=== PATIENT | male | born 1935 | race Caucasian/White ===

== ENCOUNTER → 2017-07-17 | Day surgery (SDC) | payer OTHER ==
[~2017-07-17] MED LIST: CIPRO 500MG TA500 MG PO; FLAG500 PO; LISINOPRIL HCTZ1 TAB PO; LISINOPRIL20 MG PO
--- NOTE | 2017-07-17 15:44 | RADIOLOGY REPORT ---
EXAMINATION: XR PORTABLE CHEST CLINICAL INFORMATION: Status post bronchoscopy COMPARISON: 07/07/2017 TECHNIQUE: Portable frontal view of the chest was obtained. FINDINGS: No convincing evidence for pneumothorax. Continued right-sided opacity which may be fluid and/or atelectasis or infiltrate. Left lung is grossly clear. There is no effusion. IMPRESSION: Status post bronchoscopy. Continued significant right-sided infiltrate with mild increase in the right apex. No convincing evidence for an underlying pneumothorax. Left lung is grossly clear
--- NOTE | 2017-07-17 17:42 | Operative Report ---
Operative/Inv Procedure Report Surgery Date: 07/17/17 Name of Procedure: Navigational bronchoscopy with fine needle aspiration, brushings, forceps biopsy , and bronchoalveolar lavage Pre-Operative Diagnosis: Right lung mass Post-Operative Diagnosis: Same Estimated Blood Loss: scant Surgeon/Supervisor Sulfuric Acid Plant: Ricardo Markham MD Anesthesia: general endotracheal tube Operative/Procedure Note Note: After placement of monitoring lines and induction of general anesthesia a survey bronchoscopy was done. In the right upper lobe there was narrowing of the segmental bronchus but no obstructive lesions were visualized. In the middle lobe there appeared to be an obstructing lesion at the lateral segmental bronchus. The mucosa was somewhat friable in this area. On the left side the endobronchial anatomy was normal. The navigational system was then registered and engaged. Biopsies were first done at the right upper lobe bronchus with transbronchial Contreras needle aspiration. Brushings were then passed into the narrowed segmental bronchus. The second lesion was then identified and was part of the mass obstructing the middle lobe bronchus. Direct forcep biopsies were taken of this area and sent in formalin for permanent evaluation. Bronchoalveolar lavage was done and the fluid sent for cytology. At the end the procedure there was good hemostasis and the mediastinoscopy section proceeded. CC: Alisa LOPEZ,Nasim Enriquez; Shahrzad LOPEZ,Ricardo
--- NOTE | 2017-07-17 17:45 | Operative Report ---
Operative/Inv Procedure Report Surgery Date: 07/17/17 Name of Procedure: Mediastinoscopy Pre-Operative Diagnosis: Mediastinal lymphadenopathy Post-Operative Diagnosis: Metastatic carcinoma Estimated Blood Loss: scant Surgeon/Cager Operator: Indiana Nichols MD,Cm Hammonds Anesthesia: general endotracheal tube Operative/Procedure Note Note: At the end of the navigational procedure the patient's neck and chest were then prepped and draped in a sterile fashion. A small incision was made above the sternal notch and carried down to pre-tracheal fascia. Of note because of the patient's relative inflexible neck entry into the posterior mediastinum was somewhat difficult and this included the fact that his thyroid was fairly low in the neck. The posterior mediastinum was entered with blunt dissection and the mediastinoscope was advanced to the right paratracheal area. There was a significant amount of fibrosis in this area and with dissection there was some venous blood oozing. The lymph nodes that were seen on CT scan were identified and exhibit display representative specimens were taken from one nest in that area. Intraoperative frozen section of one piece disclosed evidence of a poorly differentiated carcinoma. The distinction between small cell and non-small cell was not apparent on frozen section but there was clearly evidence of malignancy. Because of the oozing no further lymph nodes stations were biopsied. Hemostasis was achieved with electrocautery and with Surgicel packing that was left behind in the lymph node bed. The wound was closed in layers deep Vicryl suture pop followed by running Vicryl subcuticular suture. The patient tolerated the procedure well and brought to recovery room in stable condition. CC: Alisa LOPEZ,Nasim Markham MD,Ricardo
== END ==
LOC: STS 01:56
DX: C77.1 Secondary and unspecified malignant neoplasm of intrathoracic lymph nodes (principal); R91.8 Other nonspecific abnormal finding of lung field; I10 Essential (primary) hypertension; Z87.891 Personal history of nicotine dependence
CPT/HCPCS: 71045; 88305; 88331; C9399; J0690; J2250

== ENCOUNTER 2017-08-19 09:37 | Emergency (ER) | payer OTHER ==
[~2017-08-19] VITALS: Ht 167.6 cm; Wt 68.0 kg
--- NOTE | 2017-08-19 09:58 | ED CARDIAC/CP/PALPITATIONS ---
History of Present Illness General Chief Complaint: Chest Pain Stated Complaint: CHEST PAIN Source: patient Exam Limitations: no limitations Allergies Coded Allergies: NO KNOWN ALLERGIES (01/04/15) Triage Note: PT SENT TO ED BY DR TALAVERA FOR RIGHT SIDED CHEST PAIN X 1 WEEK, WORSE YESTERDAY. PT STATES "IT'S THE LUNG". STATES PAIN COMES AND GOES, 11/04 AT THIS TIME. WAS SUPPOSED TO HAVE A CHEMO TREATMENT TODAY, BUT WAS SENT TO ED FOR FURTHER EVAL. EKG DONE. PT ALSO C/O FEELING SOB, RA SATS 92%. PT TAKEN TO ROOM 5 FOR EVAL. Triage Nurses Notes Reviewed? yes Onset: Abrupt Duration: day(s): (2), constant Timing: recent history Quality/Severity: moderate, severe Location: right side Radiation: no radiation HPI: 82-year-old male comes into the emergency room complaints of right-sided chest pain has been going on for the past day. 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 Pain is right- sided. Sharp. Some associated shortness of breath. Denies any fever chills vomiting. He underwent his first treatment of chemotherapy yesterday. He was sent in by his oncologist for a cardiac workup and pulmonary embolism rule out. (Olu Brower) Vital Signs & Intake/Output Vital Signs & Intake/Output Vital Signs Date Time Temp Pulse Resp B/P B/P Pulse O2 O2 Flow FiO2 Mean Ox Delivery Rate 08/19 1810 98.0 98 20 127/71 95 Room Air 08/19 1313 98.3 96 20 134/61 94 08/19 1013 96 Room Air Room Air 08/19 0946 97.0 106 20 121/70 92 Room Air ED Intake and Output 08/20 0000 08/19 1200 Intake Total 0 Output Total Balance 0 Intake, Oral 0 Patient 150 lb Weight Weight Estimated Measurement Method Reconcile Medications Albuterol Sulfate (Ventolin Hfa) 90 MCG HFA.AER.AD 2 PUF INH Q4-6 PRN PRN SOB (Reported) Lisinopril/Hydrochlorothiazide (Lisinopril-Hctz 20-25 MG Tab) 20 MG-25 MG TABLET 1 TAB PO DAILY HEART (Reported) Magnesium Oxide (Magnesium) (Unknown Strength) CAPSULE (Unknown Dose) supplement (Reported) (Margaret LOPEZ,William Levine) Past History Travel History Traveled to [place] past 21 day No Medical History Any Pertinent Medical History? see below for history Cardiovascular: hypertension Cancer(s): lung cancer History of MRSA: Yes Surgical History Surgical History: shoulder surgery Psychosocial History What is your primary language Panamanian Tobacco Use: Quit >30 days ago ETOH Use: denies use Illicit Drug Use: denies illicit drug use Family History Hx Contributory? No (Olu Brower) Review of Systems Review of Systems Constitutional: Reports: no symptoms. EENTM: Reports: no symptoms. Respiratory: Reports: see HPI. Cardiovascular: Reports: see HPI. GI: Reports: no symptoms. Genitourinary: Reports: no symptoms. Musculoskeletal: Reports: no symptoms. Skin: Reports: no symptoms. Neurological/Psychological: Reports: no symptoms. Hematologic/Endocrine: Reports: no symptoms. Immunologic/Allergic: Reports: no symptoms. All Other Systems: Reviewed and Negative (Olu Brower) Physical Exam Physical Exam General Appearance: well developed/nourished, alert, awake Head: atraumatic Eyes: Bilateral: normal appearance. Ears, Nose, Throat: normal ENT inspection, hearing grossly normal Neck: normal inspection Respiratory: no respiratory distress Cardiovascular: regular rate/rhythm, tachycardia Gastrointestinal: soft Back: normal inspection Extremities: normal inspection Neurologic/Psych: awake, alert, oriented x 3 Skin: intact, normal color Core Measures ACS in differential dx? Yes CVA/TIA Diagnosis No Sepsis Present: No Sepsis Focused Exam Completed? No (Olu Brower) Progress Differential Diagnosis: AMI, aortic dissection, musculoskeletal pain, pericarditis, pneumonia, pneumothorax, pulmonary embolism, unstable angina Diagnostic Imaging: Viewed by Me: CT Scan. Discussed w/RAD: CT Scan. Radiology Impression: PATIENT: CURT SHARPE PRESENT AGE: 82 PATIENT ACCOUNT NO: [id number] : 35 LOCATION: [facility] ORDERING PHYSICIAN: Olu MOTT SERVICE DATE: 08/19/17 EXAM TYPE : CAT - CTA CHEST-PULMONARY EMBOLISM EXAMINATION: CT ANGIOGRAM OF THE CHEST WITH AND WITHOUT CONTRAST (CT PULMONARY ANGIOGRAM FOR PE) CLINICAL INFORMATION: 82- year-old male patient with dyspnea. Presumptive diagnosis: Pulmonary embolism. Per chart: Small cell lung cancer. Positive d-dimer. COMPARISON: CT of the chest on 07/07/2017. (No embolism). (Large right lung mass with loculated pleural effusions and mediastinal/hilar adenopathy). Bone scan on 08/13/2017. CT of the abdomen and pelvis on 08/13/2017. (Metastatic disease above and below the diaphragm). TECHNIQUE: Prior to contrast administration, noncontrast localization images were obtained. Subsequently, multidetector volumetric imaging was performed from the thoracic inlet to below the diaphragms following the administration of 95 mL Optiray 320 intravenous contrast. No contrast reaction reported. Sagittal, coronal, and MIP oblique sagittal reformatted images were obtained on the CT workstation, uploaded to PACS, and reviewed. Total exam dose-length product 399 mGy-cm. FINDINGS: Property Site Manager: There is progression of disease involving the entire right hemithorax. The left lung appears clear. QUALITY OF STUDY/CONTRAST BOLUS: Satisfactory PULMONARY ARTERIES: No central or segmental pulmonary emboli. THORACIC AORTA: No aneurysm or dissection. LUNG/ PLEURA: There is gross progression of the malignant loculated pleural effusions and multiple pleural-based tumors. Very large loculated effusion is seen in the anterior right hemithorax. A large spiculated soft tissue mass is seen in the right apex measuring approximately 7 cm. Other pleural-based masses are spread throughout the right hemithorax. There is a loculated pleural effusion inferomedially in the right hemithorax. Cut off of the right middle lobe bronchus is seen. There is further compression affecting the right upper lobe bronchus. The right lower lobe bronchus is patent. There is bronchocentric spread of tumor in the region of the hilum. MEDIASTINUM: Metastatic mediastinal lymphadenopathy is seen in the right hilum and tumor directly infiltrates the mediastinum anterior to the trachea and superior into the right paratracheal region. Tumor also extends into the posterior mediastinum and abuts the descending thoracic aorta. Metastatic lymph nodes are present in the anterior mediastinum. Metastatic nodes are present in the epicardial fat within the middle mediastinum. There is now spread in the retrocrural space. There is no septal bowing. CHEST WALL/AXILLA: Suspicious lymph nodes are present in the right axilla. OSSEOUS STRUCTURES: Given the essentially negative bone scan, there is still suspicion osteolytic foci in the thoracic vertebral bodies which could well represent metastatic disease. There is interbody fusion of T4 and T5. UPPER ABDOMEN: The bulk lymphadenopathy has increased in the upper abdomen in the perivascular spaces in the celiac axis. The adrenal glands are spared. No reflux of contrast into the hepatic veins to suggest elevated right heart pressures. IMPRESSION: 1. No evidence of pulmonary embolism. 2. Gross progression of tumor involving the right hemithorax with pleural studding and loculated pleural effusions. Invasion of the mediastinum. Metastatic nodes in the anterior mediastinum, epicardial fat, and retrocrural region. 3. Gross increase in the bulk adenopathy in the upper abdomen including the perivascular, periaortic, and celiac axis lymph nodes. 4. Question metastatic bone disease in the face of an unimpressive nuclear medicine scan. VTE: negative DICTATED BY: Alex Grubbs MD DATE/TIME DICTATED:08/19/171243 PHARMACOVIGILANCE SAFETY EXPERT: LETICIA DATE/TIME TRANSCRIBED:08/19/171243 CONFIDENTIAL, DO NOT COPY WITHOUT APPROPRIATE AUTHORIZATION. <Electronically signed in Other Vendor System> SIGNED BY: Alex Grubbs MD 08/19/17 1321 Initial ED EKG: normal sinus rhythm, rate (109), RBBB (Olu Brower) Plan of Care: Orders Procedure Date/time Status Heart Healthy Diet 08/19 D Active Intake & Output 08/19 1938 Active Misc Message 08/19 1446 Active ED Holding Orders 08/19 1446 Active Vital Signs 08/19 1446 Active Code Status 08/19 1446 Active TROPONIN LEVEL 08/19 0952 Complete PARTIAL THROMBOPLASTIN TIME 08/19 0952 Complete PROTHROMBIN TIME 08/19 0952 Complete COMPREHENSIVE METABOLIC PANEL 08/19 0952 Complete CBC WITHOUT DIFFERENTIAL 08/19 0952 Complete EKG 08/19 0939 Active Laboratory Tests 08/19/17 1932: Sodium Cancelled, Potassium Cancelled, Chloride Cancelled, Carbon Dioxide Cancelled, Anion Gap Cancelled, BUN Cancelled, Creatinine Cancelled, BUN/ Creatinine Ratio Cancelled, Glucose Cancelled, Calcium Cancelled 08/19/17 1125: PT 13.9 H, INR 1.27 H, APTT 31 08/19/17 1040: Anion Gap 11, Estimated GFR > 60, BUN/Creatinine Ratio 31.3 H, Glucose 107 H, Calcium 8.9, Total Bilirubin 0.6, AST 29, ALT 31, Alkaline Phosphatase 62, Troponin I < 0.01, Total Protein 5.8 L, Albumin 3.0 L, Globulin 2.8, Albumin/ Globulin Ratio 1.1, CBC w Diff NO MAN DIFF REQ, RBC 3.71 L, MCV 82.0, MCH 28.3, MCHC 34.5, RDW 12.8, MPV 6.8 L, Gran % 86.6 H, Lymphocytes % 3.9 L, Monocytes % 9.2, Eosinophils % 0.1, Basophils % 0.2, Absolute Granulocytes 8.3 H, Absolute Lymphocytes 0.4 L, Absolute Monocytes 0.9 H, Absolute Eosinophils 0, Absolute Basophils 0 Comments: 08/19/2017 2:45:24 PM I have discussed this patient's case with Dr. Rockwell. 08/19/2017 3:50:[address] Mason has cold in regards to Curt. Dr. 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 He recommends salt tablets and he will start reevaluate Curt tomorrow morning and repeat his sodium level. Although this is a departure from the planned admission, the family and patient are in agreement. The patient's daughter will stay with him overnight and can bring him back to the hospital in less than 10 minutes if it becomes necessary. She also has the capability of calling 911 for emergency treatment. (Margaret LOPEZ,William Levine) Departure Departure Condition: Stable Referrals: Alisa LOPEZ,Nasim Enriquez (PCP/Family) Additional Instructions: You are refusing repeat blood work at this time. Follow-up with your oncologist tomorrow. Please go over all results of today's visit with your primary care doctor. Contact your primary care doctor to let them know you were here in the emergency room. There may be nonspecific findings which may not be related to your visit today here in the emergency room but may require further evaluation and chronic monitoring by your primary care doctor. If you had a laceration today the chance of foreign body always remains. You should follow-up with your primary care doctor for recheck in 3-5 days for a wound check. If you had an x-ray done there is a chance that a fracture could have been missed on initial read and you should follow-up with your primary care doctor for repeat x-rays if symptoms persist. If your blood pressure was elevated here in the emergency room please have rechecked by [facility] primary care doctor within the next 48. If you were prescribed a narcotic here in the emergency room or any type of controlled substances you're not allowed to drive while taking this medication or operate any type of heavy machinery. Narcotics can make you feel lightheaded dizziness nausea and can cause constipation. You may need to apple picker a stool softener. Thank you for choosing emergency room. Please return to the emergency room immediately if you have any other concerns worsening of symptoms. Departure Forms: Customer Survey General Discharge Information (Olu Brower) Departure Disposition: STILL A PATIENT Clinical Impression Primary Impression: Hyponatremia Secondary Impressions: Chest pain PA/CAKE DECORATOR Co-Sign Statement Statement: ED Attending supervision documentation- [X] I saw and evaluated the patient. I have also reviewed all the pertinent lab results and diagnostic results. I agree with the findings and the plan of care as documented in the PA's/CAKE DECORATOR's documentation. Patient presents for evaluation of chest pain at the request of his him otology oncology physician (patient has a history of small cell cancer). Physical examination reveals a comfortable and conversant patient in no acute respiratory distress. [] I have reviewed the ED Record and agree with the PA's/CAKE DECORATOR's documentation. [] Additions or exceptions (if any) to the PAs/CAKE DECORATOR's note and plan are summarized below: [] (Margaret LOPEZ,William Levine) Critical Care Note Critical Care Note Critical Care Time: non-applicable (Olu Brower)
[2017-08-19 10:57] LABS: ABSOLUTE BASOPHIL COUNT 0 /CUMM (0.0-0.2); ABSOLUTE EOSINOPHIL COUNT 0 /CUMM (0.0-0.7); ABSOLUTE GRANULOCYTE CT 8.3 /CUMM (1.4-6.5); ABSOLUTE LYMPH COUNT 0.4 /CUMM (1.2-3.4); ABSOLUTE MONOCYTE COUNT 0.9 /CUMM (0.10-0.60); BASOPHIL % 0.2 % (0.0-2.0); EOSINOPHIL % 0.1 % (0-5); HEMATOCRIT 30.4 % (42-52); MEAN CORPUSCULAR HGB 28.3 PG (27.0-31.0); MEAN CORPUSCULAR HGB CONC 34.5 G/DL (33.0-37.0); MEAN PLATELET VOLUME 6.8 FL (7.4-10.4); PLATELET COUNT 267 /CUMM (130-400); RBC DISTRIBUTION WIDTH 12.8 % (11.5-14.5); RED BLOOD CELL CT 3.71 /CUMM (4.70-6.10); WHITE BLOOD CELL COUNT 9.6 /CUMM (4.8-10.8)
[2017-08-19 11:13] LABS: GRANULOCYTE % 86.6 % (42.2-75.2)
[2017-08-19] MEDS ORDERED: LISINOPRIL-HCT1 EAC1 PO (11:13)
[2017-08-19 11:51] LABS: PT 13.9 SEC (9.4-12.5); PTT 31 SEC (25-37)
--- NOTE | 2017-08-19 13:21 | CT SCAN REPORT ---
EXAMINATION: CT ANGIOGRAM OF THE CHEST WITH AND WITHOUT CONTRAST (CT PULMONARY ANGIOGRAM FOR PE) CLINICAL INFORMATION: 82-year-old male patient with dyspnea. Presumptive diagnosis: Pulmonary embolism. Per chart: Small cell lung cancer. Positive d-dimer. COMPARISON: CT of the chest on 07/07/2017. (No embolism). (Large right lung mass with loculated pleural effusions and mediastinal/hilar adenopathy). Bone scan on 08/13/2017. CT of the abdomen and pelvis on 08/13/2017. (Metastatic disease above and below the diaphragm). TECHNIQUE: Prior to contrast administration, noncontrast localization images were obtained. Subsequently, multidetector volumetric imaging was performed from the thoracic inlet to below the diaphragms following the administration of 95 mL Optiray 320 intravenous contrast. No contrast reaction reported. Sagittal, coronal, and MIP oblique sagittal reformatted images were obtained on the CT workstation, uploaded to PACS, and reviewed. Total exam dose-length product 399 mGy-cm. FINDINGS: Aerospace Technician: There is progression of disease involving the entire right hemithorax. The left lung appears clear. QUALITY OF STUDY/CONTRAST BOLUS: Satisfactory PULMONARY ARTERIES: No central or segmental pulmonary emboli. THORACIC AORTA: No aneurysm or dissection. LUNG/PLEURA: There is gross progression of the malignant loculated pleural effusions and multiple pleural-based tumors. Very large loculated effusion is seen in the anterior right hemithorax. A large spiculated soft tissue mass is seen in the right apex measuring approximately 7 cm. Other pleural-based masses are spread throughout the right hemithorax. There is a loculated pleural effusion inferomedially in the right hemithorax. Cut off of the right middle lobe bronchus is seen. There is further compression affecting the right upper lobe bronchus. The right lower lobe bronchus is patent. There is bronchocentric spread of tumor in the region of the hilum. MEDIASTINUM: Metastatic mediastinal lymphadenopathy is seen in the right hilum and tumor directly infiltrates the mediastinum anterior to the trachea and superior into the right paratracheal region. Tumor also extends into the posterior mediastinum and abuts the descending thoracic aorta. Metastatic lymph nodes are present in the anterior mediastinum. Metastatic nodes are present in the epicardial fat within the middle mediastinum. There is now spread in the retrocrural space. There is no septal bowing. CHEST WALL/AXILLA: Suspicious lymph nodes are present in the right axilla. OSSEOUS STRUCTURES: Given the essentially negative bone scan, there is still suspicion osteolytic foci in the thoracic vertebral bodies which could well represent metastatic disease. There is interbody fusion of T4 and T5. UPPER ABDOMEN: The bulk lymphadenopathy has increased in the upper abdomen in the perivascular spaces in the celiac axis. The adrenal glands are spared. No reflux of contrast into the hepatic veins to suggest elevated right heart pressures. IMPRESSION: 1. No evidence of pulmonary embolism. 2. Gross progression of tumor involving the right hemithorax with pleural studding and loculated pleural effusions. Invasion of the mediastinum. Metastatic nodes in the anterior mediastinum, epicardial fat, and retrocrural region. 3. Gross increase in the bulk adenopathy in the upper abdomen including the perivascular, periaortic, and celiac axis lymph nodes. 4. Question metastatic bone disease in the face of an unimpressive nuclear medicine scan. VTE: negative
--- NOTE | 2017-08-19 14:50 | History & Physical ---
Adolfo Alonzo MD 08/19/17 8277: General Information and HPI Allergies/Medications Allergies: Coded Allergies: NO KNOWN ALLERGIES (01/04/15) Past History Travel History Traveled to [place] past 21 day No Medical History Cardiovascular: hypertension Cancer(s): lung cancer History of MRSA: Yes Surgical History Surgical History: shoulder surgery Past Family/Social History Psychosocial History ETOH Use: denies use Illicit Drug Use: denies illicit drug use Linwood Damon MD 08/19/17 1512: General Information and HPI Allergies/Medications Home Med list Albuterol Sulfate (Ventolin Hfa) 90 MCG HFA.AER.AD 2 PUF INH Q4-6 PRN PRN SOB (Reported) Lisinopril/Hydrochlorothiazide (Lisinopril-Hctz 20-25 MG Tab) 20 MG-25 MG TABLET 1 TAB PO DAILY HEART (Reported) Magnesium Oxide (Magnesium) (Unknown Strength) CAPSULE (Unknown Dose) supplement (Reported) Resident Review Statement Other Findings: History of Present Illness 82 year old man with past medical history of hypertension recently diagnosed with right small cell lung cancer s/p 1 round chemotherapy seen for evaluation or chest pain. Patient reports that he was awoken from sleep around midnight with 7-8/10 right sided chest pain. The pain was sharp, non-radiating, non-positional, non- pleuritic. He denies any assciated shortness of breath, cold sweats, palpitations, orthopnea, or heart burn. His daughter gave him some "CBD" oil this morning that reduced his pain to 2/10. Presently he reports feeling well and admits to only mild right sided check pain. He reports drinking a large amount of water recently because he was told to "stay hydrated" before having his port-o-cath placed. Patient mostly takes his blood pressure medication "as needed", but has been taking it daily for the past month. Review of Systems Otherwise he denies any headache, fever, chills, Social History Former smoker, 30 + years ago but admits to smoking from age ~7 to around 50 smoking up to three packs per day. Previous alcohol use, last drink November 2017. No recreational drug use. Objective Vital Signs -Temperature: -Heart rate: -Respiratory rate: -Systolic BP: -Diastolic BP: -O2 Sat: Physical Exam -General: -HEENT: -Neck: -Cardio: -Pulmonary: -Abdomen: -Neuro: -Extremities: Labs / Imaging / Studies -CBC: -BMP: -LFT: -Misc: Assessment 82 year old man Problem List -Right chest wall pain, probably due to tumor invasion -Small cell lung cancer, on chemotherapy s/p 1 session -Hyponatremia, most likely due to malignancy -Hypertension -Old Right bundle branch block Plan -Admit to telemetry -Telemetry monitoring -Continue home meds: HCTZ/Lisinopril -Oncology consult for small cell lung cancer -Cardiology consult for chest pain -Consider nephrology consult should sodium fail to correct -Trend troponin / EKG until peak or three negative sets -Check serum osmolaltity, urinalysis, and urine lytes -Echocardiogram -Pain control with acetaminophenn -Heart Healthy Diet with 1200cc fluid restriction -DVT PPx with lovenox -FULL CODE Racheal Rockwell 08/19/17 1540: Attending MD Review Statement Attending Statement Attending MD Statement: examined this patient, discuss w/resident/PA/PREPARING BOX TENDER, agreed w/resident/PA/PREPARING BOX TENDER, discussed with family, reviewed EMR data (avail), discussed with nursing, discussed with case mgmt, reviewed images, amended to note Attending Assessment/Plan: 82 o/m with pmh of lung cancer s/p chemotherapy now worsening lung disease and pleural effusion comes with right sided chest pain. Patient is hyponatrmeia Na 121. Patient initial cardiac enzyme negative. Labs and imaging noted. Patient being admitted to telemetry for atypical chest pain and hyponatremia. Obtain serial cardiac enzymes r/o ME. ECHO if not done, Consult oncology and nephrology. 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 Lung cancer worsening with pleural effusion: Oncology consult, chemotherapy plan as per oncology.
[2017-08-19] MEDS ORDERED: VENTOLIN HFA18 GM INH (15:19)
[2017-08-19] MEDS ORDERED: MAGNESIUM400 M1 (15:20)
[2017-08-19 18:10] VITALS: BP 127/71
== END 2017-08-19 20:05 ==
LOC: ERH 09:37 → ERHI 14:46 → CANBEDREQ 19:07 → ERH 20:05
PROVIDERS: Physician Assistant Medical
DX: E87.1 Hypo-osmolality and hyponatremia (principal); R07.9 Chest pain, unspecified
CPT/HCPCS: 93005; 93010

== ENCOUNTER → 2017-09-18 | Day surgery (SDC) | payer OTHER ==
[~2017-09-18] VITALS: Ht 162.6 cm; Wt 68.0 kg
[~2017-09-18] MED LIST changes: +LISINOPRIL-HCT1 EAC1 PO; +MAGNESIUM400 M1; +MIRALAX119 GM PO; +SENNA8.6 M3 PO; +VENTOLIN HFA18 GM INH
--- NOTE | 2017-09-18 10:51 | RADIOLOGY REPORT ---
EXAMINATION: XR PORTABLE CHEST CLINICAL INFORMATION: Rule out hemothorax pneumothorax. Check tip placement. Status post right Port-A-Cath in PACU. COMPARISON: Intraoperative spot radiograph of the chest performed earlier the same day. Chest CTA 08/19/2017. TECHNIQUE: Portable frontal view of the chest was obtained. FINDINGS: There is complete opacification of the right hemithorax which appears similar compared to the prior chest CTA from 08/19/2013. There has been interval placement of a right chest wall Port-A-Cath tip terminating over the SVC. A new subtle focus of apical lucency is seen which could represent a tiny pneumothorax. The left lung is clear. The cardiomediastinal silhouette appears normal. IMPRESSION: Interval placement of a right chest wall Port-A-Cath with tip terminating over the SVC. New focus of apical lucency which could represent a tiny pneumothorax. Redemonstration of complete opacification of the right lung.
--- NOTE | 2017-09-18 13:33 | RADIOLOGY REPORT ---
EXAMINATION: XR PORTABLE CHEST CLINICAL INFORMATION: Status post Port-A-Cath. Patient needs left side down decubitus film. COMPARISON: Chest radiograph performed earlier the same day. TECHNIQUE: Portable left lateral decubitus view of the chest was obtained. FINDINGS: The previously seen small apical lucency in the right upper lobe is no longer well resolved. No definite pneumothorax is seen. There is a right chest wall Port-A-Cath in position with tip overlying the SVC. Continued opacification of the right chest with some improved aeration in the right lower lung zone. The left lung remains clear. IMPRESSION: No definite pneumothorax. Stable position of the right chest wall Port-A-Cath with tip overlying the SVC. Some improved aeration in the right lower lobe and continued opacification of the right lung.
--- NOTE | 2017-09-18 13:41 | Operative Report ---
Operative/Inv Procedure Report Surgery Date: 09/18/17 Name of Procedure: Fluoroscopic guided tunneled insertion of right IJ Port-A-Cath Pre-Operative Diagnosis: Lung cancer, very limited IV access Post-Operative Diagnosis: Same Estimated Blood Loss: scant Surgeon/Implant Polisher: Wilfred LOPEZ,Alejandro Marc Anesthesia: general endotracheal tube Operative/Procedure Note Note: With the patient supine on the OR table, right arm tucked, head not turned, after induction of MAC sedation, the patient's right subclavian area, including the shoulder neck and contralateral chest, were prepped and draped in the usual sterile fashion. After injecting local anesthetic in the right infraclavicular area, skin, subcutaneous to the clavicle, and inferiorly where the pocket will be, the patient was repositioned to Trendelenburg. Putting your right index finger on the sternal notch and thumb pressing down lateral to the curve of the clavicle, I made a puncture through the skin with the 15 blade scalpel next to thumb. Then along that line towards the tip of your finger, advance a large- bore needle, bevel towards the feet, on a slip tip 10 mL syringe barrel flat against the deltoid, advancing to bone and then "walking" it down just under the clavicle keeping the needle flat as possible, while maintaining vacuum with the plunger, trying to access the subclavian vein, I tried a few times I could not even get/part of it was healthy and he was and part of it might be the tumor which is at the right lung apex so we decided to go the neck instead, I turned the head to the left injected more local anesthetic just above the clavicle and then used a finder needle 20-gauge aiming at the top of the small triangle between the 2 heads of the stomach on a mastoid muscle towards the right nipple I was able to access the jugular vein and made a small ishan in the skin next to it and try to advance large-bore needle to the same spot but it wouldn't go, so we brought in the ultrasound to help guide us he could see the needle on the jugular vein and it just wouldn't puncture the anterior wall, eventually it did, then replacing the syringe with a wire, sliding in with minimum resistance, confirming the position with the C-arm fluoroscope, making sure the wire is traveling down along the cava towards the right side of the heart and not up or across, and no ectopy. Next I secured the wire to the drape, measured ( approximately 26 cm), cut and attached the catheter to the port. Approximately 3-4 cm inferior to the first infraclavicular stick site a 2-1/2 cm long skin incision was made with a 15 blade scalpel along Langers lines. It was deepened with cautery and a space was developed inferiorly under the subcutaneous layer. The Port-A-Cath was laid in there and secured in [address] with 2-0 Prolene through the holes in the port, the sutures were kept loose on snaps at this point. Next the catheter was tunneled up subcutaneously with the provided tunneler and brought out through the stick site next to the wire up over the clavicle into the stick site in the neck. Then the dilator only, was passed over the wire until you could feel it slide under the clavicle, then removed, then re-advanced this time with the peel-away sheath over it, while advancing simultaneously pull the dilator out and advance the sheath, eventually pulling out the dilator and wire completely. Then the catheter was put into the sheath as far as it'll go then while holding that knuckle down with DeBakey's, gently peel-away the sheath with your patent legal assistant. Now the correct position of the catheter was confirmed with the fluoroscope, using a Rich needle and heparinized saline solution, the catheter was first aspirated then flushed with approximately 3 mL's, with minimal resistance. The patient was repositioned to neutral, after tying down the 2 Prolenes, the larger incision was closed in layers, 3-0 Vicryl deep and 4-0 subcuticular Monocryl for the skin, and one subcuticular Monocryl for the stick site. Both areas were covered with Mastisol Steri-Strips Telfa and Tegaderm. Chest x-ray was ordered to be done in the recovery room. Lap and sponge counts were correct. Wound expectancy was clean, IV fluids crystalloid, complications none, patient tolerated the procedure well was awakened and returned to the recovery room in satisfactory condition.
--- NOTE | 2017-09-18 23:01 | RADIOLOGY REPORT ---
EXAMINATION:\H\ \N\XR CHEST CLINICAL INFORMATION: Right-sided Port-A-Cath insertion performed in operating room. COMPARISON: CXR from 09/16/2017 TECHNIQUE: C-arm fluoroscopic imaging of the chest was utilized at time of Port-A-Cath insertion. NUMBER OF SAVED IMAGES: 1. FLUOROSCOPY TIME: 0 minutes. DOSE: 0.437 mGy (0.0142 mGym2) FINDINGS/IMPRESSION: Please refer to the operative report regarding specifics of the procedure. The submitted fluoroscopic image of the chest shows interval placement of a right-sided chest wall medication port, and the central catheter extends to the level of the junction of the superior vena cava and right atrium.
== END ==
LOC: STS 01:50
DX: C34.11 Malignant neoplasm of upper lobe, right bronchus or lung (principal); Z87.891 Personal history of nicotine dependence; I10 Essential (primary) hypertension
CPT/HCPCS: 71045; C1751; J0690; J1644; J3490

== ENCOUNTER 2017-12-03 10:34 | Inpatient (IN) | payer OTHER ==
[~2017-12-03] VITALS: Ht 167.6 cm; Wt 61.3 kg
[~2017-12-03 10:34] MED LIST changes: -MAGNESIUM400 M1; +MAGNESIUM400 M1 PO
--- NOTE | 2017-12-03 11:26 | ED CARDIAC/CP/PALPITATIONS ---
History of Present Illness General Chief Complaint: General Adult Stated Complaint: AMS AND ARM SWELLEN Source: patient, family Exam Limitations: no limitations Vital Signs & Intake/Output Vital Signs & Intake/Output Vital Signs Date Time Temp Pulse Resp B/P B/P Pulse O2 O2 Flow FiO2 Mean Ox Delivery Rate 12/03 1838 97.5 90 20 117/58 96 Nasal 2.0L Cannula 12/03 1653 98.8 97 20 138/59 93 Nasal 2.0L Cannula 12/03 1435 98.8 94 18 133/62 95 Nasal 2.0L Cannula 12/03 1419 92 Room Air 12/03 1051 96.4 104 24 119/67 92 Room Air Room Air Allergies Coded Allergies: No Known Allergies (09/17/17) Triage Note: PT TO ED FROM DR TALAVERA'S OFFICE, WENT FOR CHEMO TREATMENT FOR LUNG CANCER, BUT WAS SENT TO ED FOR RIGHT SIDED SWELLING, PT NOTED WITH RIGHT HAND AND ARM SWELLING, AND SWELLING TO BILATERAL FEET. O2 SATS 92% IN TRIAGE, "I HAVE BEEN USING MY WIFES OXYGEN". Triage Nurses Notes Reviewed? yes Onset: Gradual Duration: getting worse Timing: recent history Quality/Severity: moderate HPI: Patient is a 82-year-old male with a recent diagnosis of lung cancer currently receiving chemotherapy patient's oncologist is who presents emergency room with a one-month history of shortness of breath with productive cough and a two-week history of left upper extremity swelling patient has generalized weakness fatigue and dyspnea on exertion. Patient denies any fever chest pain nausea vomiting hemoptysis. Patient does have a one-month history of bilateral lower extremity leg swelling (Keshawn MOTT,Allan) Reconcile Medications Albuterol Sulfate (Ventolin Hfa) 90 MCG HFA.AER.AD 2 PUF INH Q4-6 PRN PRN SOB (Reported) Magnesium Oxide (Magnesium) 400 MG CAPSULE 1 TAB PO DAILY NUTRITION (Reported ) Polyethylene Glycol 3350 (Miralax) 17 GRAM/DOSE POWDER 17 GM PO DAILY constipation mix with water, juice, soda, coffee or tea Sennosides (Senna) 8.6 MG TABLET 2 TAB PO BID constipation (William Fink DO) Past History Travel History Traveled to [place] past 21 day No Medical History Any Pertinent Medical History? see below for history Neurological: NONE EENT: NONE Cardiovascular: hypertension Respiratory: LUNG CA Gastrointestinal: NONE Hepatic: NONE Renal: NONE Musculoskeletal: NONE Psychiatric: NONE Endocrine: NONE Blood Disorders: NONE Cancer(s): lung cancer CERTIFIED NURSES AIDE/Reproductive: NONE History of MRSA: Yes Surgical History Surgical History: shoulder surgery Psychosocial History What is your primary language Swazi Tobacco Use: Quit >30 days ago ETOH Use: denies use Illicit Drug Use: denies illicit drug use Family History Hx Contributory? No (Allan Elliott) Review of Systems Review of Systems Constitutional: Reports: see HPI, malaise. EENTM: Reports: no symptoms. Respiratory: Reports: see HPI, cough, short of breath. Cardiovascular: Reports: see HPI, peripheral edema. GI: Reports: no symptoms. Genitourinary: Reports: no symptoms. Musculoskeletal: Reports: no symptoms. Skin: Reports: no symptoms. Neurological/Psychological: Reports: no symptoms. Hematologic/Endocrine: Reports: no symptoms. Immunologic/Allergic: Reports: no symptoms. All Other Systems: Reviewed and Negative (Allan Elliott) Physical Exam Physical Exam General Appearance: lethargic Head: atraumatic Eyes: Bilateral: normal appearance. Ears, Nose, Throat: hearing grossly normal Neck: normal inspection, full range of motion Respiratory: no respiratory distress, rhonchi Cardiovascular: tachycardia Gastrointestinal: normal bowel sounds, non-tender Extremities: pedal edema Neurologic/Psych: no motor/sensory deficits, awake, alert Skin: intact, normal color, warm/dry Comments: Extremity left arm noted +3 nonpitting edema from the elbow to the hand dermatomes intact radial pulse +2 capillary refill less than 2 seconds Bilateral lower extremity +1 nonpitting edema to the feet, pulse +2 dermatomes intact Core Measures ACS in differential dx? Yes CVA/TIA Diagnosis No Sepsis Present: No Sepsis Focused Exam Completed? No (Allan Elliott) Progress Differential Diagnosis: AMI, aortic dissection, atrial fibrillation, cholecystitis, CHF/pulm edema, costochondritis, hyperkalemia, hypovolemia, hyperthyroid, hyperventilation, intracranial hemorrhage, musculoskeletal pain, myocarditis, pancreatitis, pericarditis, pneumonia, pneumothorax, PSVT, pulmonary embolism, PUD/GERD, PVCs/PACs, respiratory failure, rib fracture, sepsis, unstable angina, V-fib/V-Tach, WPW syndrome Plan of Care: Orders Procedure Date/time Status Regular Diet 12/04 B Active CBC WITHOUT DIFFERENTIAL 12/04 0600 Active BASIC ELECTROLYTES PLUS BUN&CR 12/04 0600 Active TROPONIN LEVEL 12/03 2000 Active SODIUM 12/03 2000 Active EKG 12/04 1999 Active Patient Data 12/03 1718 Active TRC EVALUATION (GEN) 12/03 1658 Active OXYGEN SETUP (GEN) 12/03 1658 Active Saline Lock 12/03 1658 Active Pathway - chart 12/03 1658 Active House Staff 12/03 165 Active Lab Add-on Test 12/03 165 Active SPECIMEN TO BE OBTAINED 12/03 1658 Active URINE OSMOLALITY 12/03 1658 Active URINE LYTES, SPOT 12/03 1658 Active URINALYSIS 12/03 1658 Active Patient Data 12/03 1649 Active ED Holding Orders 12/03 1643 Active Admit to inpatient 12/03 1643 Active Vital Signs 12/03 1643 Active Code Status 12/03 1643 Active LACTIC ACID 12/03 1435 Active SERUM OSMOLALITY 12/03 1339 Complete BLOOD CULTURE 12/03 1320 Active BLOOD CULTURE 12/03 1135 Active TROPONIN LEVEL 12/03 1135 Complete LACTIC ACID 12/03 1135 Complete COMPREHENSIVE METABOLIC PANEL 12/03 1135 Complete CBC WITHOUT DIFFERENTIAL 12/03 1135 Complete B-TYPE NATRIURETIC PEP (BNP) 12/03 1135 Complete EKG 12/03 1135 Active VTE Mechanical Prophylaxis 12/03 UNK Active Telemetry/Talent Acquisition Administrator 12/03 UNK Active Intake & Output 12/03 UNK Active Hemoccult 12/03 UNK Active Activity/Ambulation 12/03 UNK Active Current Medications Sig/Nahum Start time Last Medication Dose Stop Time Status Admin Azithromycin 500 MG 1600 12/04 1600 AC (Zithromax) Sodium Chloride 250 ML (Normal Saline 0.9%) Ceftriaxone Sodium 1,000 MG 1600 12/04 1600 AC (Rocephin) Heparin Sodium 5,000 UNIT Q8 12/03 2200 AC (Porcine) Albuterol Sulfate 2 PUF Q4-6 PRN PRN 12/03 1845 AC (Ventolin) Acetaminophen 650 MG Q8P PRN 12/03 1700 AC (Tylenol) Morphine Sulfate 2 MG Q6P PRN 12/03 1700 AC (MORPHINE SULFATE) Senna/Docusate Sodium 1 TAB AT BEDTIME PRN 12/03 1700 AC (Senokot S) Laboratory Tests 12/03/171999: Sodium Cancelled 12/03/17 1339: Anion Gap 6, Estimated GFR > 60, BUN/Creatinine Ratio 46.0 H, Glucose 103 H, Serum Osmolality 272 L, Lactic Acid 0.9, Calcium 8.9, Total Bilirubin 0.5, AST 63 H, ALT 42, Alkaline Phosphatase 89, Troponin I < 0.01, Iwf-M-[id number] Pept 423 H, Total Protein 5.5 L, Albumin 3.1 L, Globulin 2.4, Albumin/ Globulin Ratio 1.3, CBC w Diff MAN DIFF ORDERED, RBC 3.53 L, MCV 92.2, MCH 31.3 H, MCHC 34.0, RDW 19.0 H, MPV 6.8 L, Gran % 95.7 H, Lymphocytes % 0.8 L, Monocytes % 3.5, Eosinophils % 0, Basophils % 0, Absolute Granulocytes 20.3 H, Absolute Lymphocytes 0.2 L, Absolute Monocytes 0.7 H, Absolute Eosinophils 0, Absolute Basophils 0, Platelet Estimate VERIFIED BY SMEAR, Anisocytosis 1+ Microbiology 12/03 1648 BLOOD: Blood Culture - RECD 12/03 1414 BLOOD: Blood Culture - RECD 12/03 1339 BLOOD: Blood Culture - RECD 12/03 1317 BLOOD: Blood Culture - CAN Cancelled: Cancelled via OE: WRONG ACCESS Patient on initial arrival is afebrile however labs earlier today show a leukocytosis of 20,000 Patient on initial arrival is in no respiratory distress however room air patient is noted to be 87% and patient was given 2 L of nasal cannula oxygen supplementation CT scan does show concerns of postobstructive pneumonia and worsening metastasis Discussed results with patient and family members IV antibiotics will be administered. Diagnostic Imaging: Viewed by Me: CT Scan. Radiology Impression: acute abnormality Initial ED EKG: sinus rhythm 97 bpm Comments: PATIENT: CURT SHARPE PRESENT AGE: 82 PATIENT ACCOUNT NO: [id number] : 35 LOCATION: [facility] ORDERING PHYSICIAN: Allan MOTT SERVICE DATE: 12/03/17 EXAM TYPE: CAT - CTA CHEST-PULMONARY EMBOLISM EXAMINATION: CT CHEST PE STUDY CLINICAL INFORMATION: Lung cancer. Compare. Patient states on chemotherapy. COMPARISON: CT scan of the chest dated 10/14/2017. CTA of the chest dated 08/19/2017 and 07/07/2017. TECHNIQUE: Prior to contrast administration, localization images were obtained. After the administration of 94 mL of intravenous Optiray 320., multidetector CT volume acquisition of the chest was performed. 3-D postprocessing was performed with multiplanar reconstructions and MIP images obtained at the acquisition workstation under concurrent physician supervision. DLP: 439.11 mGy-cm. FINDINGS: Pulmonary arteries: The bolus timing on this study was acceptable for visualization of the pulmonary arterial tree. There are no intraluminal pulmonary arterial filling defects present to suggest pulmonary embolism in the main pulmonary artery, right and left main pulmonary artery, lobar and segmental branches. Lungs: As noted previously, there is significant volume loss in the right hemithorax with shift of the mediastinum towards the right side. A loculated and complex right-sided pleural effusion is again seen with multiple associated pleural nodularities again seen. The pleural nodularity is less well appreciated on noncontrast study but continues to encase the entire right lung and extends from the lung apex to the diaphragm and infra diaphragmatic a through the diaphragmatic hiatus into the upper retroperitoneum there is extension of the nodularity across the lower anterior medial chest wall near the inferior xiphoid process of the sternum. There is continued collapse of the right middle lobe and there are progressive areas of volume loss and parenchymal densities throughout the right lung. Findings are likely due to a combination of postobstructive pneumonia and progressive metastatic disease and perhaps lymphangitic spread of disease. Mild dependent atelectasis is seen in the left lower lobe. Left apical pleural-based reticular nodular opacities are seen, consistent with scarring. A few scattered tiny micronodules are seen in the left upper lobe and there are some patchy areas of air trapping seen. Aorta and heart: A right jugular Port-A-Cath is in place with tip extending into the deep SVC. There is significant mass effect upon the right superior pulmonary vein, which may be occluded by the dense consolidation and masses in the right lower lobe. Ectasia of the ascending and descending aorta is seen with moderate atherosclerotic calcifications noted. The heart is normal in size. The mediastinum, aorta and great vessels are normal. There is a trace pericardial effusion. Lymphatic structures: As noted previously, there is abnormal soft tissue thickening and nodularity in the mediastinum, encasing the trachea and the right mainstem bronchus and the central lobar bronchi, similar in extent to the previous exam but increased in thickness and size. The right lower paratracheal/precarinal region the soft tissue thickening now measures 2.2 cm as compared to 1.7 cm previously. There is significant mass effect at the origin of the right upper lobe bronchus, which is nearly completely collapsed. Complete collapse of the right middle lobe bronchus is seen. Significant narrowing of right lower lobe bronchiectasis is seen. There is increasing size of mediastinal lymph nodes in the anterior superior mediastinum, prevascular space and subcarinal space. For example in the subcarinal region, the adenopathy now measures 1.9 cm in short axis as compared to 1.1 cm previously. There is is abnormal matted adenopathy in the abdullahi hepatis and abdullahi caval regions and in the periceliac axis region, increased in size when compared to the prior exam in region of the periceliac axis, now measuring up to 2.2 x 1.8 cm as compared to 1.3 x 0.9 cm previously. Right retrocrural adenopathy is also seen. Upper abdomen: Limited evaluation of the upper abdominal viscera demonstrates an incompletely included low-attenuation mass in the mid right kidney, corresponding to the right renal cyst previously demonstrated. No focal abnormality. Bones: There is a focal dorsal kyphosis in the upper thoracic spine with partial fusion and compression deformities of the T4 and T5 vertebral body is seen. Significant vertebral spondylosis is seen in the mid and lower thoracic spine. Findings are similar to the previous exam. There is abnormal lucency is seen in several of the vertebral bodies, suspicious for subtle metastatic disease, though the process is ill-defined. IMPRESSION: 1. No evidence of pulmonary embolism. 2. Interval progression of extensive mediastinal and right hilar adenopathy with occlusion of the right middle lobe bronchus, likely occlusion of the right superior pulmonary vein and significant mass effect upon the remaining right hilar structures. 3. Increasing consolidation and volume loss in the right lower lobe and right upper lobe. Collapse of right middle lobe persists. 4. Extensive pleural nodularity with transthoracic extension in region of the xiphoid process and intra-abdominal extension through the diaphragmatic hiatus, similar to the previous study. 5. Increasing adenopathy in the upper abdomen. 6. Ill-defined lucencies in several of the vertebral bodies, possibly due to subtle metastatic disease versus prominent osteopenia. Findings are similar to the previous exam. VTE: Negative. DICTATED BY: Randee Winters MD. DATE/TIME DICTATED:12/03/171548 NETWORK COMMUNICATIONS ENGINEER:LETICIA DATE/TIME TRANSCRIBED:12/03/171548 CONFIDENTIAL, DO NOT COPY WITHOUT APPROPRIATE AUTHORIZATION. <Electronically signed in Other Vendor System> SIGNED BY: Randee Winters MD 162 PATIENT: CURT SHARPE PRESENT AGE: 82 PATIENT ACCOUNT NO: [id number] : 35 LOCATION: [facility] ORDERING PHYSICIAN: Allan MOTT SERVICE DATE: 12/03/17 EXAM TYPE: US - US-UNILATERAL VENOUS DOPPLER EXAMINATION: LEFT UPPER EXTREMITY VENOUS DOPPLER ULTRASOUND CLINICAL INFORMATION: Left arm swelling. Patient denies pain. No history of DVT. COMPARISON: None. TECHNIQUE: Doppler spectral analysis and color flow Doppler imaging was performed of the left upper extremity. Compression and augmentation maneuvers were performed. FINDINGS: The left internal jugular vein, proximal brachiocephalic vein, subclavian vein and axillary veins are all patent with normal color flow and phasic changes seen. The paired brachial veins are also patent with normal color flow and compressibility seen. The basilic and cephalic veins are patent with normal compressibility and color flow demonstrated. The proximal radial and ulnar veins are patent. IMPRESSION: No evidence of deep venous thrombosis in the left upper extremity. DICTATED BY: Randee Winters MD DATE/TIME DICTATED:12/03/171310 NETWORK COMMUNICATIONS ENGINEER:LETICIA DATE/TIME TRANSCRIBED:12/03/171310 (Allan Elliott) Departure Departure Disposition: STILL A PATIENT Condition: Stable Clinical Impression Primary Impression: Postobstructive pneumonia Secondary Impressions: Leukocytosis, Metastatic disease Referrals: Nasim Cuellar MD (PCP/Family) Departure Forms: Customer Survey General Discharge Information Admission Note Spoke With: Sonya Naranjo MD Documentation of Exam: Documentation of any treatments & extenuating circumstances including Concerns Regarding Discharge (functional status, medication knowledge or non-compliance, living conditions, etc.) that warrant an admission rather than observation: [ Patient requires IV antibiotics and infectious disease consultation oncology consultation blood cultures pending, repeat labs IV fluids and antitussive] (Allan Elliott) Admission Note Documentation of Exam: Documentation of any treatments & extenuating circumstances including Concerns Regarding Discharge (functional status, medication knowledge or non-compliance, living conditions, etc.) that warrant an admission rather than observation: PA/FILTER WORKER Co-Sign Statement Statement: ED Attending supervision documentation- [x] I saw and evaluated the patient. I have also reviewed all the pertinent lab results and diagnostic results. I agree with the findings and the plan of care as documented in the PA's/FILTER WORKER's documentation. [] I have reviewed the ED Record and agree with the PA's/FILTER WORKER's documentation. [] Additions or exceptions (if any) to the PAs/FILTER WORKER's note and plan are summarized below: [] I saw and evaluated the patient and I agree with the PAs plan of care. Shortness of breath. History of lung cancer. Massive generalized swelling. CTA was negative for pulmonary embolism. (William Fink DO) Critical Care Note Critical Care Note Critical Care Time: 30-74 min (Allan Elliott)
--- NOTE | 2017-12-03 13:21 | ULTRASOUND REPORT ---
EXAMINATION: LEFT UPPER EXTREMITY VENOUS DOPPLER ULTRASOUND CLINICAL INFORMATION: Left arm swelling. Patient denies pain. No history of DVT. COMPARISON: None. TECHNIQUE: Doppler spectral analysis and color flow Doppler imaging was performed of the left upper extremity. Compression and augmentation maneuvers were performed. FINDINGS: The left internal jugular vein, proximal brachiocephalic vein, subclavian vein and axillary veins are all patent with normal color flow and phasic changes seen. The paired brachial veins are also patent with normal color flow and compressibility seen. The basilic and cephalic veins are patent with normal compressibility and color flow demonstrated. The proximal radial and ulnar veins are patent. IMPRESSION: No evidence of deep venous thrombosis in the left upper extremity.
[2017-12-03 14:13] LABS: ABSOLUTE BASOPHIL COUNT 0 /CUMM (0.0-0.2); ABSOLUTE EOSINOPHIL COUNT 0 /CUMM (0.0-0.7); ABSOLUTE GRANULOCYTE CT 20.3 /CUMM (1.4-6.5); ABSOLUTE LYMPH COUNT 0.2 /CUMM (1.2-3.4); ABSOLUTE MONOCYTE COUNT 0.7 /CUMM (0.10-0.60); BASOPHIL % 0 % (0.0-2.0); EOSINOPHIL % 0 % (0-5); GRANULOCYTE % 95.7 % (42.2-75.2); HEMATOCRIT 32.5 % (42-52); MEAN CORPUSCULAR HGB 31.3 PG (27.0-31.0); MEAN CORPUSCULAR VOLUME 92.2 FL (80.0-94.0); MEAN PLATELET VOLUME 6.8 FL (7.4-10.4); PLATELET COUNT 198 /CUMM (130-400); RED BLOOD CELL CT 3.53 /CUMM (4.70-6.10); WHITE BLOOD CELL COUNT 21.2 /CUMM (4.8-10.8)
--- NOTE | 2017-12-03 16:21 | CT SCAN REPORT ---
EXAMINATION: CT CHEST PE STUDY CLINICAL INFORMATION: Lung cancer. Compare. Patient states on chemotherapy. COMPARISON: CT scan of the chest dated 10/14/2017. CTA of the chest dated 08/19/2017 and 07/07/2017. TECHNIQUE: Prior to contrast administration, localization images were obtained. After the administration of 94 mL of intravenous Optiray 320., multidetector CT volume acquisition of the chest was performed. 3-D postprocessing was performed with multiplanar reconstructions and MIP images obtained at the acquisition workstation under concurrent physician supervision. DLP: 439.11 mGy-cm. FINDINGS: Pulmonary arteries: The bolus timing on this study was acceptable for visualization of the pulmonary arterial tree. There are no intraluminal pulmonary arterial filling defects present to suggest pulmonary embolism in the main pulmonary artery, right and left main pulmonary artery, lobar and segmental branches. Lungs: As noted previously, there is significant volume loss in the right hemithorax with shift of the mediastinum towards the right side. A loculated and complex right-sided pleural effusion is again seen with multiple associated pleural nodularities again seen. The pleural nodularity is less well appreciated on noncontrast study but continues to encase the entire right lung and extends from the lung apex to the diaphragm and infra diaphragmatic a through the diaphragmatic hiatus into the upper retroperitoneum there is extension of the nodularity across the lower anterior medial chest wall near the inferior xiphoid process of the sternum. There is continued collapse of the right middle lobe and there are progressive areas of volume loss and parenchymal densities throughout the right lung. Findings are likely due to a combination of postobstructive pneumonia and progressive metastatic disease and perhaps lymphangitic spread of disease. Mild dependent atelectasis is seen in the left lower lobe. Left apical pleural-based reticular nodular opacities are seen, consistent with scarring. A few scattered tiny micronodules are seen in the left upper lobe and there are some patchy areas of air trapping seen. Aorta and heart: A right jugular Port-A-Cath is in place with tip extending into the deep SVC. There is significant mass effect upon the right superior pulmonary vein, which may be occluded by the dense consolidation and masses in the right lower lobe. Ectasia of the ascending and descending aorta is seen with moderate atherosclerotic calcifications noted. The heart is normal in size. The mediastinum, aorta and great vessels are normal. There is a trace pericardial effusion. Lymphatic structures: As noted previously, there is abnormal soft tissue thickening and nodularity in the mediastinum, encasing the trachea and the right mainstem bronchus and the central lobar bronchi, similar in extent to the previous exam but increased in thickness and size. The right lower paratracheal/precarinal region the soft tissue thickening now measures 2.2 cm as compared to 1.7 cm previously. There is significant mass effect at the origin of the right upper lobe bronchus, which is nearly completely collapsed. Complete collapse of the right middle lobe bronchus is seen. Significant narrowing of right lower lobe bronchiectasis is seen. There is increasing size of mediastinal lymph nodes in the anterior superior mediastinum, prevascular space and subcarinal space. For example in the subcarinal region, the adenopathy now measures 1.9 cm in short axis as compared to 1.1 cm previously. There is is abnormal matted adenopathy in the abdullahi hepatis and abdullahi caval regions and in the periceliac axis region, increased in size when compared to the prior exam in region of the periceliac axis, now measuring up to 2.2 x 1.8 cm as compared to 1.3 x 0.9 cm previously. Right retrocrural adenopathy is also seen. Upper abdomen: Limited evaluation of the upper abdominal viscera demonstrates an incompletely included low-attenuation mass in the mid right kidney, corresponding to the right renal cyst previously demonstrated. No focal abnormality. Bones: There is a focal dorsal kyphosis in the upper thoracic spine with partial fusion and compression deformities of the T4 and T5 vertebral body is seen. Significant vertebral spondylosis is seen in the mid and lower thoracic spine. Findings are similar to the previous exam. There is abnormal lucency is seen in several of the vertebral bodies, suspicious for subtle metastatic disease, though the process is ill-defined. IMPRESSION: 1. No evidence of pulmonary embolism. 2. Interval progression of extensive mediastinal and right hilar adenopathy with occlusion of the right middle lobe bronchus, likely occlusion of the right superior pulmonary vein and significant mass effect upon the remaining right hilar structures. 3. Increasing consolidation and volume loss in the right lower lobe and right upper lobe. Collapse of right middle lobe persists. 4. Extensive pleural nodularity with transthoracic extension in region of the xiphoid process and intra-abdominal extension through the diaphragmatic hiatus, similar to the previous study. 5. Increasing adenopathy in the upper abdomen. 6. Ill-defined lucencies in several of the vertebral bodies, possibly due to subtle metastatic disease versus prominent osteopenia. Findings are similar to the previous exam. VTE: Negative.
--- NOTE | 2017-12-03 16:50 | History & Physical ---
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 Patient states he has scant clear to white sputum production. Patient denies any orthopnea and states he can walk to the bathroom or kitchen without difficulty. Patient states he also has had left arm swelling for the past couple of weeks but denies any pain, swelling, or tenderness in either arm. Patient also reports lower extremity swelling over the past few weeks. Patient states he has experienced decreased appetite and takes high protein shakes to supplement his diet. Patient notes weight loss over the past month as well. Patient otherwise denies any chest pain, palpitations, dysuria, nausea, vomiting, fevers , chills, nightsweats, lightheadedness, syncope, and fatigue. Patient is retired and previously worked with [employer]. Patient drinks alcohol occasionally but none recently. Patient is a former smoker who quit more than 15 years ago and denies any illict drug usage. Patient lives at home. Patient denies any family history of cancer. Patient's PCP is Dr. Cuellar in [place], [place]. Patient's Oncologist is Dr. Fields. 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 Home Smoking Status: Former Smoker ETOH Use: denies use Illicit Drug Use: denies illicit drug use Review of Systems Review of Systems Constitutional: Reports: unexplained weight loss. Denies: chills, diaphoresis, fever, malaise, weakness. Cardiovascular: Reports: edema, peripheral edema. Denies: chest pain, orthopena, palpitations, syncope. Respiratory: Reports: cough, short of breath, sputum production. Denies: orthopnea, wheezing. GI: Denies: abdominal pain, constipation, nausea, vomiting. Genitourinary: Denies: dysuria. Musculoskeletal: Denies: joint pain, muscle pain. Skin: Denies: erythema. Neurological/Psychological: Denies: numbness, tingling. Exam & Diagnostic Data Last 24 Hrs of Vital Signs/I&O Vital Signs Date Time Temp Pulse Resp B/P B/P Pulse O2 O2 Flow FiO2 Mean Ox Delivery Rate 12/03 1653 98.8 97 20 138/59 93 Nasal 2.0L Cannula 12/03 1435 98.8 94 18 133/62 95 Nasal 2.0L Cannula 12/03 1419 92 Room Air 12/03 1051 96.4 104 24 119/67 92 Room Air Room Air Intake & Output 12/03 1600 / 0800 0808 0000 Intake Total 120 Output Total Balance 120 Intake, Oral 120 Patient 137 lb Weight Weight Reported by Patient Measurement Method Physical Exam General Appearance Alert, Oriented X3, Cooperative, No Acute Distress, Patient has no teeth Skin Left upper extremity edema, originating in the upper arm & extending to the hand HEENT Atraumatic, PERRLA Neck Supple, No JVD Lymphatic Axillary nl, Cervical nl Cardiovascular Normal S1, Normal S2, No Murmurs Lungs dec. b/l breath sounds; crackles b/l, no wheezing Abdomen Soft, No Tenderness Neurological Strength at 5/5 X4 Ext, Sensation Intact Extremities 1+ edema in lower extremities; 2+ non-pitting edema in Left upper extremity Assessment/Plan Assessment: Imaging CTA: 1. No evidence of pulmonary embolism. 2. Interval progression of extensive mediastinal and right hilar adenopathy with occlusion of the right middle lobe bronchus, likely occlusion of the right superior pulmonary vein and significant mass effect upon the remaining right hilar structures. 3. Increasing consolidation and volume loss in the right lower lobe and right upper lobe. Collapse of right middle lobe persists. 4. Extensive pleural nodularity with transthoracic extension in region of the xiphoid process and intra-abdominal extension through the diaphragmatic hiatus, similar to the previous study. 5. Increasing adenopathy in the upper abdomen. 6. Ill-defined lucencies in several of the vertebral bodies, possibly due to subtle metastatic disease versus prominent osteopenia. Findings are similar to the previous exam. Left Upper Extremity Venous Doppler U/S: No evidence of deep venous thrombosis in the left upper extremity. 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 Etiology in this case with a presentation of shortness of breath, coughing spells, peripheral edema in the left upper extremity and b/l lower extremities with a white count elevation and decreased breath sounds with crackles on lung auscultation is likely related to a developing pulmonary infection. Findings on CTA show a likely postobstructive pneumonia and progressive metastatic disease and possible lymphangitic spread of disease #Sepsis, likely 2/2 post-obstructive pneumonia - Admit to Telemetry floor for monitoring and assessment of vitals - Antibiotic coverage via Azithromycin + Ceftriaxone for community-acquired pneumonia - Leukocytosis with WBC 21.1, follow up CBC - Oxygen therapy to maintain saturation > 92% via NC or face mask; if needed CPAP or BiPAP - Lactic Acid 0.9 (nl) - Blood cultures pending, consider sputum cx. 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 FC As Ranked By This Provider Problem List: 1. Sepsis 2. Postobstructive pneumonia 3. Hyponatremia 4. Lung cancer Core Measures/Misc (01/12) Acute Coronary Syndrome ACS Diagnosis: No Congestive Heart Failure Congestive Heart Failure Diagnosis No Cerebrovascular Accident CVA/TIA Diagnosis: No VTE (View Protocol) VTE Risk Factors Acute Medical Illness No Mechanical VTE Prophylaxis d/t N/A MechProphylax Ordered No VTE Pharm Prophylaxis d/t NA PharmProphylax ordered Sepsis (View protocol) Sepsis Present: Yes If YES complete Sepsis Event Note If YES complete Sepsis Event Note Mac Pierce 12/03/17 6943: General Information and HPI Allergies/Medications Home Med list Albuterol Sulfate (Ventolin Hfa) 90 MCG HFA.AER.AD 2 PUF INH Q4-6 PRN PRN SOB (Reported) Magnesium Oxide (Magnesium) 400 MG CAPSULE 1 TAB PO DAILY NUTRITION (Reported ) Polyethylene Glycol 3350 (Miralax) 17 GRAM/DOSE POWDER 17 GM PO DAILY constipation mix with water, juice, soda, coffee or tea Sennosides (Senna) 8.6 MG TABLET 2 TAB PO BID constipation Core Measures/Misc (01/12) Sepsis (View protocol) If YES complete Sepsis Event Note If YES complete Sepsis Event Note Resident Review Statement Resident Statement: examined this patient, discussed with product management internship, agreed with product management internship, amended to note Other Findings: Mr Martin is a 82 year old with a PMHx of extensive stage small cell carcinoma, HTN came to the hospital w/ a chief concern of worsening dyspnea, productive cough, and left upper extremity swelling x 4 wks. He was known to be in his usual state of health until three months ago and was diagnosed w/ possible small cell carcinoma as an incidental mass noted on a chest x ray while he was being evaluated for cough of one month duration. There was a plan to get chemotx on 12/03/17, and was found to have right upper arm swelling for which he was sent to for evaluation. He continued to have worsening exertional dyspnea, but no chest pain, palpitations. He contiued to have productive cough, but no fever or chills. Reported decreased apetitite. No diarrhea, wen or brpbr. No sick contacts. Reported to have noticed right arm swelling with no erythema, pain or tenderness. No insect bites, or recent use of any needles. In regards to his oncological history, he was diagnosed w/ extensive small cell carcinoma(dx'ed 08/13, tx w/ Carboplatin+Etoposide cycle 5, dx'ed incidenatally on an abnormal CT scan to have had a pleural mass at the anterior right lung based, w/ loculated right pleural effusion and biopsied to confirm by IHC). At the time of admission-temperature 98.8, pulse rate 94, suspicion 18, blood pressure 133/62, pulse ox 95% on 2 L oxygen. EKG reveals T-wave inversion in V3 -V4, T-wave flattening in V5-V6, which is relatively new compared to previous EKGs. Normal sinus rhythm, RBBB, LAFB, LAD. General Exam: AAOx3, No acute distress, Skin: No rashes, multiple areas of ulcerations on his right upper extremity;HEENT: PERRLA, EOMI;Neck: Supple, No JVD ; No cervical lymphadenopathy;CVS: Reg Rate, Normal S1,S2, No MGR;Resp: decreased air entry bilaterally, ronchi bilarally ;Abdomen: Soft, No tenderness , Normal Bowel Sounds;Neuro: Normal Speech, Strength 5/5 b/l x 4 extremities, Sensation intact, CN III-XII NL, Reflexes 2+;Extremities: RUE pitting edema, no cervical or axillary lymphadenopathy, bilateral lower extremity pedal edema 2+. RUE US - No evidence of deep venous thrombosis in the left upper extremity. CTA- 1. No evidence of pulmonary embolism.2. Interval progression of extensive mediastinal and right hilar adenopathywith occlusion of the right middle lobe bronchus, likely occlusion of theright superior pulmonary vein and significant mass effect upon the remainingright hilar structures.3. Increasing consolidation and volume loss in the right lower lobe and rightupper lobe. Collapse of right middle lobe persists.4. Extensive pleural nodularity with transthoracic extension in region of thexiphoid process and intra-abdominal extension through the diaphragmatichiatus, similar to the previous study.5. Increasing adenopathy in the upper abdomen.6. Ill-defined lucencies in several of the vertebral bodies , possibly due tosubtle metastatic disease versus prominent osteopenia. Findings are similarto the previous exam. VTE: Negative. Pertinent Findings: WBC 21.2 ( 95% granulocytes) Hb 1.1, platelet count 198. Sodium 128, potassium 4.6, 91, bicarbonate 31. BUN 23, creatinine 0.5 (likely dehydration) Calcium 8.9 Liver chemistries-AST 63, ALT 42, alkaline phosphatase 89. Albumin 3.1. Sodium trend: 123(07/30)-->130(08/20)-->131(08/27)-->124(09/17)-->128(10/01)-->132(10/22)-->135(11/12) History of acute onset of symptoms cough w/ purulent sputum, continued exertional dyspnea with lung findings of lung masses that could be causing obstructive pneumonia. Being getting chemo for the treatment of small cell ca, puts him at a higher risk of infections including atypicals. Etiology in this case with signs and symptoms of pneumonia- leukocytosis and radiological signs of segmental consolidation is likely bacterial pneumonia. Mortality is usually higher in elderly patients with coexisting malignancy, which needs to aggressively treated. 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 He was given intravenous fluids -normal saline for the treatment of sepsis, and possible hypovolemic hyponatremia would be corrected appropriately. Unfortunately, fluids were started prior to obtaining urine sample for calculating urine osmolarity, it is unclear if he has SIADH. EKG changes, with T-wave inversions which are relatively new associated with dyspnea, cardiac cause needs to be ruled out. No recent cardiac work upl. Problem list: 1. Lung cancer, possible small cell carcinoma 2. Pneumonia, likely post-obstructive 3. Hyponatremia, likely SIADH 4. Leucocytosis, sepsis 5. EKG changes, t wave inversions 6. Left upper extremtiy swelling, likely lymphedema. #Supplemental oxygen #monitoring specialist for the next 24 hours, and serious EKG and troponin to rule out any cardiac cause. No echocardiogram is required at this time. If there is any change in cardiac enzymes, would consult cardiology immediately. It does not appear to be cardiac at this time. Aspirin 162 mg 1. #Inhaled bronchodilators as needed #Follow CBCs with differential, serum chemistry #Check blood cultures, sputum cultures and Gram stain #Check urine antigen test for strep pneumo and legionella #Start IV antibiotics-preferably beta lactam+ macrolide, pending cultures. #Check electrolytes every 4-6 hourly. Since he received normal saline, would recheck sodium, and if it is trending appropriately would either discontinue fluids or start fluid restriction for the treatment of SIADH. Avoid overcorrection. Goal 8 mEq/day. #Urine sodium #Serum and urine osmolality #Thyroid function test CODE STATUS: Full code DVT prophylaxis-subcutaneous heparin Sonya Naranjo MD 12/03/17 2302: Core Measures/Misc (01/12) Sepsis (View protocol) If YES complete Sepsis Event Note If YES complete Sepsis Event Note Attending MD Review Statement Attending Statement Attending MD Statement: examined this patient, discuss w/resident/PA/COMMAND CENTER OFFICER, agreed w/resident/PA/COMMAND CENTER OFFICER, reviewed EMR data (avail) Attending Assessment/Plan: 82m pmh lung cancer presenting with weakness and cough, febrile, elevated WBC, post-obstructive pneumonia on CTA with no evidence of PE. Will start IV hydration, Ceftriaxone, Azithro, cultures, trend enzymes and EKG (T-wave flattening in anterior leads), continue home meds, DVT PPx.
--- NOTE | 2017-12-03 18:35 | Sepsis Event Note ---
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 Patient states he has scant clear to white sputum production. Patient denies any orthopnea and states he can walk to the bathroom or kitchen without difficulty. Patient states he also has had left arm swelling for the past couple of weeks but denies any pain, swelling, or tenderness in either arm. Patient also reports lower extremity swelling over the past few weeks. Patient states he has experienced decreased appetite and takes high protein shakes to supplement his diet. Patient notes weight loss over the past month as well. Patient otherwise denies any chest pain, palpitations, dysuria, nausea, vomiting, fevers, chills, nightsweats, lightheadedness, syncope, and fatigue. Patient received NS 1L Bolus, Ceftriaxone 1 g, Azithromycin 500 mg, and Mucinex 600 mg in the ED. O: Vitals: On presentation - T 96.4 HR 104 RR 24 BP 119/67 Pulse Ox. 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
[2017-12-03 23:42] VITALS: BP 132/72
[2017-12-04 06:55] VITALS: BP 124/68
--- NOTE | 2017-12-04 07:52 | Cons- Oncology ---
General Information and HPI Consulting Request Date of Consult: 12/04/17 Requested By: Sonya Naranjo MD History of Present Illness: 82-year-old man well known to me with presumed extensive small cell lung carcinoma now admitted with increasing shortness of breath and altered mental status. 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 Initial CAT scan suggested response. Patient presented yesterday to my office with altered mental status and shortness of breath not associated with fever productive cough or chest pain. Patient denied headaches or focal neurologic deficit. Allergies/Medications Allergies: Coded Allergies: No Known Allergies (09/17/17) Home Med List: Albuterol Sulfate (Ventolin Hfa) 90 MCG HFA.AER.AD 2 PUF INH Q4-6 PRN PRN SOB (Reported) Magnesium Oxide (Magnesium) 400 MG CAPSULE 1 TAB PO DAILY NUTRITION (Reported ) Polyethylene Glycol 3350 (Miralax) 17 GRAM/DOSE POWDER 17 GM PO DAILY constipation mix with water, juice, soda, coffee or tea Sennosides (Senna) 8.6 MG TABLET 2 TAB PO BID constipation Current Medications: Current Medications Sig/Nahum Start time Last Medication Dose Route Stop Time Status Admin Acetaminophen 650 MG Q8P PRN 12/03 1700 AC PO Albuterol Sulfate 2 PUF Q4-6 PRN PRN 12/03 1845 AC INH Aspirin 0 .STK-MED ONE 12/03 1933 DC PO Aspirin 162 MG ONCE ONE 12/03 1830 DC 12/03 PO 12/03 1831 1933 Azithromycin 500 MG 1600 12/04 1600 AC Sodium Chloride 250 ML IV Azithromycin 500 MG ONCE ONE 12/03 1630 DC 12/03 Sodium Chloride 250 ML IV 12/03 1729 1807 Ceftriaxone Sodium 1,000 MG 1600 12/04 1600 AC IV Ceftriaxone Sodium 0 .STK-MED ONE 12/03 1707 DC .ROUTE Ceftriaxone Sodium 1,000 MG ONCE ONE 12/03 1630 DC 12/03 IV 12/03 1631 1716 Guaifenesin 600 MG ONCE ONE 12/03 1145 DC 12/03 PO 12/03 1146 1345 Heparin Sodium 5,000 UNIT Q8 12/03 2200 AC 12/04 (Porcine) SC 0528 Morphine Sulfate 2 MG Q6P PRN 12/03 1700 AC IV Senna/Docusate Sodium 1 TAB AT BEDTIME PRN 12/03 1700 AC PO Sodium Chloride 1,000 ML BOLUS ONE 12/03 1630 DC 12/03 IV 12/03 1829 1715 Review of Systems Review of Systems: Patient denied dysuria or hematuria. Patient denied new bone aches. 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 Home Smoking Status: Former Smoker ETOH Use: denies use Illicit Drug Use: denies illicit drug use Exam & Diagnostic Data Vital Signs and I&O Vital Signs Date Time Temp Pulse Resp B/P B/P Pulse O2 O2 Flow FiO2 Mean Ox Delivery Rate 12/04 0655 97.7 96 18 124/68 92 Nasal Cannula 12/04 0000 Nasal 2.0L Cannula 12/03 2342 97.9 97 18 132/72 93 Nasal 2.0L Cannula 12/03 2200 Nasal 2.0L Cannula 12/03 2015 100 18 140/70 97 Nasal 2.0L Cannula 12/03 1838 97.5 90 20 117/58 96 Nasal 2.0L Cannula 12/03 1653 98.8 97 20 138/59 93 Nasal 2.0L Cannula 12/03 1435 98.8 94 18 133/62 95 Nasal 2.0L Cannula 12/03 1419 92 Room Air 12/03 1051 96.4 104 24 119/67 92 Room Air Room Air Intake & Output 12/04 0800 12/04 0000 12/03 1600 Intake Total 0 1370 Output Total 350 Balance -350 0 1370 Intake, IV 1250 Intake, Oral 0 120 Number 1 Bowel Movements Output, Urine 350 Patient 140 lb 137 lb Weight Weight Bed scale Reported by Patient Measurement Method Gen.: in NAD ENT: Sclera anicteric Chest: Normal respiratory effort, markedly decreased breath sounds Cor: RRR, no extra sounds Abdomen: Soft, bowel sounds present, no tenderness, no rebound Extremities: Without clubbing, cyanosis, or asymmetric edema in lower extremity, slightly swollen left upper extremity Neurology: Awake and oriented 3, slightly confused, no gross deficit Skin: No rashes Last 48 Hours of Lab Results: Laboratory Tests 12/04 12/03 12/03 12/03 051999 143 Chemistry Sodium (137 - 145 mmol/L) Pending 126 L Cancelled Potassium Pending Chloride Pending Carbon Dioxide Pending Anion Gap Pending BUN Pending Creatinine Pending BUN/Creatinine Ratio Pending Lactic Acid Cancelled Troponin I (<0.11 ng/ml) < 0.01 Hematology CBC w Diff Pending WBC Pending RBC Pending Hgb Pending Hct Pending MCV Pending MCH Pending MCHC Pending RDW Pending Plt Count Pending MPV Pending 12/03 1339 Chemistry Sodium (137 - 145 mmol/L) 128 L Potassium (3.5 - 5.1 mmol/L) 4.6 Chloride (98 - 107 mmol/L) 91 L Carbon Dioxide (22 - 30 mmol/L) 31 H Anion Gap (5 - 16) 6 BUN (9 - 20 mg/dL) 23 H Creatinine (0.7 - 1.2 mg/dL) 0.5 L Estimated GFR (>60 ml/min) > 60 BUN/Creatinine Ratio (7 - 25 %) 46.0 H Glucose (65 - 99 mg/dL) 103 H Serum Osmolality (285 - 295 MOSM/KG) 272 L Lactic Acid (0.7 - 2.1 mmol/L) 0.9 Calcium (8.4 - 10.2 mg/dL) 8.9 Total Bilirubin (0.2 - 1.3 mg/dL) 0.5 AST (17 - 59 U/L) 63 H ALT (21 - 72 U/L) 42 Alkaline Phosphatase (< 127 U/L) 89 Troponin I (<0.11 ng/ml) < 0.01 [id number] Pept (<125 pg/mL) 423 H Total Protein (6.3 - 8.2 g/dL) 5.5 L Albumin (3.5 - 5.0 g/dL) 3.1 L Globulin (1.9 - 4.2 gm/dL) 2.4 Albumin/Globulin Ratio (1.1 - 2.2 %) 1.3 Hematology CBC w Diff MAN DIFF ORDERED WBC (4.8 - 10.8 /CUMM) 21.2 H RBC (4.70 - 6.10 /CUMM) 3.53 L Hgb (14.0 - 18.0 G/DL) 11.1 L Hct (42 - 52 %) 32.5 L MCV (80.0 - 94.0 FL) 92.2 MCH (27.0 - 31.0 PG) 31.3 H MCHC (33.0 - 37.0 G/DL) 34.0 RDW (11.5 - 14.5 %) 19.0 H Plt Count (130 - 400 /CUMM) 198 MPV (7.4 - 10.4 FL) 6.8 L Gran % (42.2 - 75.2 %) 95.7 H Lymphocytes % (20.5 - 51.1 %) 0.8 L Monocytes % (1.7 - 9.3 %) 3.5 Eosinophils % (0 - 5 %) 0 Basophils % (0.0 - 2.0 %) 0 Absolute Granulocytes (1.4 - 6.5 /CUMM) 20.3 H Absolute Lymphocytes (1.2 - 3.4 /CUMM) 0.2 L Absolute Monocytes (0.10 - 0.60 /CUMM) 0.7 H Absolute Eosinophils (0.0 - 0.7 /CUMM) 0 Absolute Basophils (0.0 - 0.2 /CUMM) 0 Platelet Estimate (ADEQUATE) VERIFIED BY SMEAR Anisocytosis 1+ Imaging/Other Studies: [id number] pulmonary emboli, markedly increased lymphadenopathy, increased abdominal lymphadenopathy, no mention of liver status Upper extremity Doppler-no DVT Assessment/Plan Assessment: 1. Small cell lung cancer-documented progression. Patient has a poor performance status. Second line chemotherapy may or may not be offered to this patient given his poor performance status. There may be a role for radiation therapy for palliation. Recommend-because of altered mental status, CT scan of head with contrast 2. Altered mental status-as above 3. Leukocytosis-this is been documented throughout the patient's course. His may be leukocytosis for malignancy. Recommend- Patient has been placed on antibiotics already for presumed post obstructive pneumonia 4. Hyponatremia-is been chronic, likely multifactorial including SIADH. Overall, the patient's prognosis is poor as is his performance status Recommendations: .. Consult Acknowledgment - Thank you for your consult request.
[2017-12-04 08:13] LABS: ABSOLUTE BASOPHIL COUNT 0 /CUMM (0.0-0.2); ABSOLUTE EOSINOPHIL COUNT 0 /CUMM (0.0-0.7); ABSOLUTE GRANULOCYTE CT 16.2 /CUMM (1.4-6.5); ABSOLUTE LYMPH COUNT 0.2 /CUMM (1.2-3.4); ABSOLUTE MONOCYTE COUNT 1.1 /CUMM (0.10-0.60); BASOPHIL % 0 % (0.0-2.0); EOSINOPHIL % 0 % (0-5); HEMATOCRIT 31.5 % (42-52); MEAN CORPUSCULAR HGB 31.3 PG (27.0-31.0); MEAN CORPUSCULAR HGB CONC 33.2 G/DL (33.0-37.0); MEAN CORPUSCULAR VOLUME 94.3 FL (80.0-94.0); MEAN PLATELET VOLUME 7.3 FL (7.4-10.4); PLATELET COUNT 181 /CUMM (130-400); RBC DISTRIBUTION WIDTH 19.1 % (11.5-14.5); RED BLOOD CELL CT 3.34 /CUMM (4.70-6.10); WHITE BLOOD CELL COUNT 17.5 /CUMM (4.8-10.8)
[2017-12-04 09:34] LABS: GRANULOCYTE % 92.6 % (42.2-75.2)
--- NOTE | 2017-12-04 11:15 | PN- Housestaff ---
Jesus Taveras 12/04/17 1115: Subjective Follow-up For: Post obstructive pneumonia related sepsis, T wave inversion on ekg Complaints: pt unable to provide hx Tele-Events Since Last Visit: no events Subjective: Patient was seen bedside, c/o swelling of upper limb, he seemed very tired and wanted to sleep. more history could not be obtained Review of Systems Constitutional: Reports: malaise, weakness, unexplained weight loss. Denies: chills, diaphoresis, fever. Cardiovascular: Denies: chest pain, edema, orthopena, palpitations, peripheral edema, syncope. Respiratory: Reports: cough, short of breath, sputum production. Denies: hemoptysis, orthopnea, stridor, wheezing. Gastrointestinal: Denies: abdominal pain, constipation, diarrhea, vomiting. Genitourinary: Denies: dysuria, frequency, urgency. Musculoskeletal: Reports: no symptoms. Objective Last 24 Hrs of Vital Signs/I&O Vital Signs Date Time Temp Pulse Resp B/P B/P Pulse O2 O2 Flow FiO2 Mean Ox Delivery Rate 12/05 1600 Nasal 2.0L Cannula 12/05 1400 98.3 95 20 120/58 95 12/05 1047 92 Nasal 2.0L Cannula 12/05 0900 Nasal 2.0L Cannula 12/05 0643 98.8 99 20 136/64 94 Nasal 2.0L Cannula 12/05 0000 Nasal 2.0L Cannula Intake & Output 12/05 1600 12/05 0800 12/05 0000 Intake Total 480 550 Output Total 700 100 Balance 480 -700 450 Intake, IV 300 Intake, Oral 480 250 Number 2 Bowel Movements Output, Urine 700 100 Patient 135 lb 135 lb Weight Physical Exam General Appearance: Alert, Oriented X3, Cooperative, No Acute Distress Cardiovascular: Normal S1, Normal S2 Lungs: decreased air entry b/l Abdomen: Normal Bowel Sounds, Soft, No Tenderness, No Hepatospenomegaly, No Masses Neurological: Normal Speech, Strength at 5/5 X4 Ext, Normal Tone, Sensation Intact Extremities: No Clubbing, No Cyanosis, Normal Pulses, No Tenderness/Swelling, edema on left side UE Current Medications: Current Medications Sig/Nahum Start time Last Medication Dose Route Stop Time Status Admin Acetaminophen 650 MG Q8P PRN 12/03 1700 AC PO Albuterol Sulfate 3 ML Q4-6 PRN PRN 12/04 1145 AC INH Albuterol Sulfate 2 PUF Q4-6 PRN PRN 12/03 1845 AC INH Azithromycin 500 MG 1600 12/04 1600 AC 12/04 Sodium Chloride 250 ML IV 1825 Ceftriaxone Sodium 1,000 MG 1600 12/04 1600 AC 12/04 IV 1824 Heparin Sodium 5,000 UNIT Q8 12/03 2200 AC 12/05 (Porcine) SC 0507 Morphine Sulfate 2 MG Q6P PRN 12/03 1700 AC IV Senna/Docusate Sodium 1 TAB AT BEDTIME PRN 12/03 1700 AC PO Last 24 Hrs of Lab/Cj Results Last 24 Hrs of Labs/Mics: Laboratory Tests 12/05/17 0410: Anion Gap 4 L, Estimated GFR > 60, BUN/Creatinine Ratio 42.0 H, CBC w Diff NO MAN DIFF REQ, RBC 3.25 L, MCV 93.9, MCH 31.0, MCHC 33.0, RDW 19.3 H, MPV 6.7 L, Gran % 88.5 H, Lymphocytes % 2.8 L, Monocytes % 8.7, Eosinophils % 0, Basophils % 0, Absolute Granulocytes 12.5 H, Absolute Lymphocytes 0.4 L, Absolute Monocytes 1.2 H, Absolute Eosinophils 0, Absolute Basophils 0 12/04/17 1610: Anion Gap 6, Estimated GFR > 60, BUN/Creatinine Ratio 46.0 H Microbiology 12/04 162 LOWER RESP: Respiratory Culture - COLB 12/05 1623 LOWER RESP: Gram Stain - COLB Assessment/Plan Assessment: Chad Martin is a 82 YO male with a PMHx. of SCLC diagnosed by Dr. Fields in June 2017 s/p 5 chemotherapy treatments who presents to the ED with a chief complaint of "shortness of breath and peripheral edema." Patient states that for the past 2-3 weeks he has been experiencing progressive dyspnea and coughing spells.. Findings on CTA show a likely postobstructive pneumonia and progressive metastatic disease and possible lymphangitic spread of disease . Venous doppler- No signs of DVT #Sepsis, likely 2/2 post-obstructive pneumonia - Admit to Telemetry floor for monitoring and assessment of vitals - Antibiotic coverage via Azithromycin + Ceftriaxone for community-acquired pneumonia - Leukocytosis with WBC 17.5, follow up CBC - Oxygen therapy to maintain saturation > 92% via NC or face mask; if needed CPAP or BiPAP - Blood cultures pending, consider sputum cx. 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 Lung cancer 2. Postobstructive pneumonia 3. 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 Patient is lethargic today, would prefer to sleep and did not want to speak to us. He appears midlly ill but overall tired and weak. Afebrile overnight, stable vitals, WBC down from 21 to 17, cultures negative. Still with LUE swelling with negative Doppler. 1. RLL pneumonia secondary to obstruction 2. Right sided lung cancer 3. SIADH 4. LUE edema 5. Acute EKG changes Plan - Continue on telemetry - Ceftriaxone and Azithromycin - Sputum and blood cultures - Nebulizer treatments - Obtain pulmonary consult - Follow cardiology and oncology recommendations - Monitor sodium - Continue home medications - DVT PPx
[2017-12-04 15:34] VITALS: BP 122/56
[2017-12-04 22:17] VITALS: BP 120/72
[2017-12-05 04:24] LABS: ABSOLUTE BASOPHIL COUNT 0 /CUMM (0.0-0.2); ABSOLUTE EOSINOPHIL COUNT 0 /CUMM (0.0-0.7); ABSOLUTE GRANULOCYTE CT 12.5 /CUMM (1.4-6.5); ABSOLUTE LYMPH COUNT 0.4 /CUMM (1.2-3.4); ABSOLUTE MONOCYTE COUNT 1.2 /CUMM (0.10-0.60); BASOPHIL % 0 % (0.0-2.0); EOSINOPHIL % 0 % (0-5); HEMATOCRIT 30.5 % (42-52); MEAN CORPUSCULAR VOLUME 93.9 FL (80.0-94.0); MEAN PLATELET VOLUME 6.7 FL (7.4-10.4); PLATELET COUNT 182 /CUMM (130-400); RBC DISTRIBUTION WIDTH 19.3 % (11.5-14.5); RED BLOOD CELL CT 3.25 /CUMM (4.70-6.10); WHITE BLOOD CELL COUNT 14.1 /CUMM (4.8-10.8)
[2017-12-05 04:57] LABS: GRANULOCYTE % 88.5 % (42.2-75.2)
--- NOTE | 2017-12-05 06:27 | PN- Housestaff ---
Jesus Taveras 12/05/17 0626: Subjective Follow-up For: Post obstructive pneumonia, T wave inversion Complaints: no complaints Tele-Events Since Last Visit: HR 60 Subjective: Patient was examined at the bedside , He is doing well, improved mentation and decreased LE edema, Decreased L UE edema, Decreased SOB. Continues to cough Review of Systems Constitutional: Reports: see HPI. Denies: diaphoresis, fever, malaise, weakness. Cardiovascular: Reports: edema. Denies: chest pain, orthopena, palpitations, peripheral edema. Respiratory: Reports: cough, short of breath, sputum production. Denies: hemoptysis, orthopnea, stridor, wheezing. Gastrointestinal: Denies: abdominal pain, constipation. Genitourinary: Denies: dysuria, frequency, urgency. Objective Last 24 Hrs of Vital Signs/I&O Vital Signs Date Time Temp Pulse Resp B/P B/P Pulse O2 O2 Flow FiO2 Mean Ox Delivery Rate 12/05 1600 Nasal 2.0L Cannula 12/05 1400 98.3 95 20 120/58 95 12/05 1047 92 Nasal 2.0L Cannula 12/05 0900 Nasal 2.0L Cannula 12/05 0643 98.8 99 20 136/64 94 Nasal 2.0L Cannula 12/05 0000 Nasal 2.0L Cannula Intake & Output 12/05 1600 12/05 0800 12/05 0000 Intake Total 480 550 Output Total 700 100 Balance 480 -700 450 Intake, IV 300 Intake, Oral 480 250 Number 2 Bowel Movements Output, Urine 700 100 Patient 135 lb 135 lb Weight Physical Exam General Appearance: Alert, Oriented X3, Cooperative, No Acute Distress Cardiovascular: Regular Rate, No Murmurs Lungs: Clear to Auscultation, Normal Air Movement Abdomen: Normal Bowel Sounds, Soft, No Tenderness, No Hepatospenomegaly, No Masses Neurological: Normal Speech, Strength at 5/5 X4 Ext, Normal Tone, Sensation Intact Current Medications: Current Medications Sig/Nahum Start time Last Medication Dose Route Stop Time Status Admin Acetaminophen 650 MG Q8P PRN 12/03 1700 DCD PO Albuterol Sulfate 3 ML Q4-6 PRN PRN 12/04 1145 DCD INH Albuterol Sulfate 2 PUF Q4-6 PRN PRN 12/03 1845 DCD INH Amoxicillin/ 875 MG Q12 12/05 2100 DCD Clavulanate Potassium PO Azithromycin 250 MG DAILY 12/06 0900 DCD PO 12/09 0901 Azithromycin 500 MG 1600 12/04 1600 DC 12/05 Sodium Chloride 250 ML IV 1045 Ceftriaxone Sodium 1,000 MG 1600 12/04 1600 DC 12/05 IV 1046 Heparin Sodium 0 .STK-MED ONE 12/05 1449 DC (Porcine) IV Heparin Sodium 0 .STK-MED ONE 12/05 1445 DC (Porcine) .ROUTE Heparin Sodium 5,000 UNIT Q8 12/03 2200 DCD 12/05 (Porcine) SC 1314 Lorazepam 1 MG Q6 PRN 12/05 1430 CAN PO Morphine Sulfate 2 MG Q6P PRN 12/03 1700 DCD IV Patient Medication 1 ED ONE ONE 12/05 1415 DC 12/05 Teaching ED 12/05 1416 1408 Senna/Docusate Sodium 1 TAB AT BEDTIME PRN 12/03 1700 DCD PO Last 24 Hrs of Lab/Cj Results Last 24 Hrs of Labs/Mics: Laboratory Tests 12/05/17 0410: Anion Gap 4 L, Estimated GFR > 60, BUN/Creatinine Ratio 42.0 H, Magnesium 1.9, CBC w Diff NO MAN DIFF REQ, RBC 3.25 L, MCV 93.9, MCH 31.0, MCHC 33.0, RDW 19.3 H, MPV 6.7 L, Gran % 88.5 H, Lymphocytes % 2.8 L, Monocytes % 8.7, Eosinophils % 0, Basophils % 0, Absolute Granulocytes 12.5 H, Absolute Lymphocytes 0.4 L, Absolute Monocytes 1.2 H, Absolute Eosinophils 0, Absolute Basophils 0 Assessment/Plan Assessment: Chad Martin is a 82 YO male with a PMHx. of SCLC diagnosed by Dr. Fields in June 2017 s/p 5 chemotherapy treatments who presents to the ED with a chief complaint of "shortness of breath and peripheral edema." Patient states that for the past 2-3 weeks he has been experiencing progressive dyspnea and coughing spells.. Findings on CTA show a likely postobstructive pneumonia and progressive metastatic disease and possible lymphangitic spread of disease . Venous doppler- No signs of DVT #Sepsis, likely 2/2 post-obstructive pneumonia - Admit to Telemetry floor for monitoring and assessment of vitals - Antibiotic changed to PO Azithro 5 days and AUgmentin 7 days - Leukocytosis with WBC 14 follow up CBC - Oxygen therapy to maintain saturation > 92% via 2L NC or face mask; if needed CPAP or BiPAP - Blood cultures pending, consider sputum cx. - DIscharge on request on O2 with instruction to return to hospital if return of sx. 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 Lung cancer 2. Sepsis 3. 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 Much more awake and alert today. Conversant and cooperative. No complaints. Per daughter he looks much better and is near baseline. He still becomes short of breath with exertion and desaturates to 83% with movement on room air. At rest on 2L he is 93%. 1. RLL pneumonia secondary to obstruction 2. Right sided lung cancer 3. SIADH 4. LUE edema 5. Acute EKG changes 6. Acute hypoxemic respiratory failure Plan - Discussed with patient and family staying one more day for continued treatment. Patient wants to go home. He understands that he may worsen at home , but wishes to be there. Understands the risks of discharge. - Oxygen on discharge - Augmentin for 7 additional days. Complete 5 day course of Azithromycin - Outpatient pulmonary and oncology follow up - Continue home medications
[2017-12-05 06:43] VITALS: BP 136/64
--- NOTE | 2017-12-05 07:06 | PN- Oncology ---
Subjective Subjective: Less communicative, offers no specific complaints Objective Vital Signs and I&Os Vital Signs Date Time Temp Pulse Resp B/P B/P Pulse O2 O2 Flow FiO2 Mean Ox Delivery Rate 12/05 0543 98.8 99 20 136/64 94 Nasal 2.0L Cannula 12/05 0000 Nasal 2.0L Cannula 12/04 2217 98.9 97 20 120/72 94 12/04 2009 93 Nasal 2.0L Cannula 12/04 1600 Nasal 2.0L Cannula 12/04 1534 98.5 101 18 122/56 95 Nasal 2.0L Cannula 12/04 1130 Nasal 2.0L Cannula 12/05 799 96 Nasal 2.0L Cannula Intake & Output 12/05 0000 12/04 1600 12/04 0000 12/03 1600 Intake Total 550 0 1370 Output Total 700 100 350 Balance -700 450 -350 0 1370 Intake, IV 300 1250 Intake, Oral 250 0 120 Number 1 Bowel Movements Output, Urine 700 100 350 Patient 135 lb 140 lb 137 lb Weight Weight Bed scale Reported by Patient Measurement Method Gen.: in NAD ENT: Sclera anicteric Chest: Decreased breath sounds Cor: RRR, no extra sounds Abdomen: Soft, bowel sounds present, no tenderness, no rebound Extremities: Without clubbing, cyanosis, or asymmetric lower edema Neurology: More lethargic Current Medications: Current Medications Sig/Nahum Start time Last Medication Dose Route Stop Time Status Admin Acetaminophen 650 MG Q8P PRN 12/03 1700 AC PO Albuterol Sulfate 3 ML Q4-6 PRN PRN 12/04 1145 AC INH Albuterol Sulfate 2 PUF Q4-6 PRN PRN 12/03 1845 AC INH Azithromycin 500 MG 1600 12/04 1600 AC 12/04 Sodium Chloride 250 ML IV 1825 Ceftriaxone Sodium 1,000 MG 1600 12/04 1600 AC 12/04 IV 1824 Heparin Sodium 5,000 UNIT Q8 12/03 2200 AC 12/05 (Porcine) SC 0507 Morphine Sulfate 2 MG Q6P PRN 12/03 1700 AC IV Senna/Docusate Sodium 1 TAB AT BEDTIME PRN 12/03 1700 AC PO Results Last 24 Hours of Lab Results: Laboratory Tests 12/05 12/04 0410 1610 Chemistry Sodium (137 - 145 mmol/L) 131 L 129 L Potassium (3.5 - 5.1 mmol/L) 4.3 4.6 Chloride (98 - 107 mmol/L) 94 L 92 L Carbon Dioxide (22 - 30 mmol/L) 33 H 31 H Anion Gap (5 - 16) 4 L 6 BUN (9 - 20 mg/dL) 21 H 23 H Creatinine (0.7 - 1.2 mg/dL) 0.5 L 0.5 L Estimated GFR (>60 ml/min) > 60 > 60 BUN/Creatinine Ratio (7 - 25 %) 42.0 H 46.0 H Hematology CBC w Diff NO MAN DIFF REQ WBC (4.8 - 10.8 /CUMM) 14.1 H RBC (4.70 - 6.10 /CUMM) 3.25 L Hgb (14.0 - 18.0 G/DL) 10.1 L Hct (42 - 52 %) 30.5 L MCV (80.0 - 94.0 FL) 93.9 MCH (27.0 - 31.0 PG) 31.0 MCHC (33.0 - 37.0 G/DL) 33.0 RDW (11.5 - 14.5 %) 19.3 H Plt Count (130 - 400 /CUMM) 182 MPV (7.4 - 10.4 FL) 6.7 L Gran % (42.2 - 75.2 %) 88.5 H Lymphocytes % (20.5 - 51.1 %) 2.8 L Monocytes % (1.7 - 9.3 %) 8.7 Eosinophils % (0 - 5 %) 0 Basophils % (0.0 - 2.0 %) 0 Absolute Granulocytes (1.4 - 6.5 /CUMM) 12.5 H Absolute Lymphocytes (1.2 - 3.4 /CUMM) 0.4 L Absolute Monocytes (0.10 - 0.60 /CUMM) 1.2 H Absolute Eosinophils (0.0 - 0.7 /CUMM) 0 Absolute Basophils (0.0 - 0.2 /CUMM) 0 Assessment/Plan Assessment/Recommendations: 1. Small cell lung cancer-please obtain CAT scan of head with contrast 2. Altered mental status-as above 3. Hyponatremia-improving Overall status remains poor.
--- NOTE | 2017-12-05 09:46 | Cons- Cardiology ---
General Information and HPI Consulting Request Date of Consult: 12/05/17 Requested By: Sonya Naranjo MD History of Present Illness: 82 year old gentleman sent to the ED from his oncology appointment, where he was found to have bilateral lower extremity edema as well as left upper extremity edema, along with increased lethargy and SOB. Patient is being treated for advanced stage lung cancer. Patient was also hyponatremic upon presentation. He has been diuresed during his stay and is now much better. There remains mild left arm edema however. Allergies/Medications Allergies: Coded Allergies: No Known Allergies (09/17/17) Home Med List: Albuterol Sulfate (Ventolin Hfa) 90 MCG HFA.AER.AD 2 PUF INH Q4-6 PRN PRN SOB (Reported) Amoxicillin/Clavulanate Potass (Amox-Clav 875-125 MG Tablet) 875 MG-125 MG TABLET 875 MG PO Q12 pneumopnia . Azithromycin 250 MG TABLET 250 MG PO ONCE pneumonia . Magnesium Oxide (Magnesium) 400 MG CAPSULE 1 TAB PO DAILY NUTRITION (Reported ) Polyethylene Glycol 3350 (Miralax) 17 GRAM/DOSE POWDER 17 GM PO DAILY constipation mix with water, juice, soda, coffee or tea Sennosides (Senna) 8.6 MG TABLET 2 TAB PO BID constipation Current Medications: Current Medications Sig/Nahum Start time Last Medication Dose Route Stop Time Status Admin Acetaminophen 650 MG Q8P PRN 12/03 1700 AC PO Albuterol Sulfate 3 ML Q4-6 PRN PRN 12/04 1145 AC INH Albuterol Sulfate 2 PUF Q4-6 PRN PRN 12/03 1845 AC INH Azithromycin 500 MG 1600 12/04 1600 AC 12/04 Sodium Chloride 250 ML IV 1825 Ceftriaxone Sodium 1,000 MG 1600 / 1600 AC 12/04 IV 1824 Heparin Sodium 5,000 UNIT Q8 12/03 2200 AC 12/05 (Porcine) SC 0507 Morphine Sulfate 2 MG Q6P PRN 12/03 1700 AC IV Senna/Docusate Sodium 1 TAB AT BEDTIME PRN 12/03 1700 AC PO Past History Travel History Traveled to [place] past 21 day No Medical History Blood Transfusion Hx: No Neurological: NONE EENT: NONE Cardiovascular: hypertension Respiratory: LUNG CA, small cell Gastrointestinal: NONE Hepatic: NONE Renal: NONE Musculoskeletal: NONE Psychiatric: NONE Endocrine: NONE Blood Disorders: NONE Cancer(s): lung cancer DOBBY LOOM WEAVER/Reproductive: NONE Surgical History Surgical History: shoulder surgery Psychosocial History Where Do You Live? Home Smoking Status: Former Smoker ETOH Use: denies use Illicit Drug Use: denies illicit drug use Exam & Diagnostic Data Vital Signs and I&O Vital Signs Date Time Temp Pulse Resp B/P B/P Pulse O2 O2 Flow FiO2 Mean Ox Delivery Rate 12/05 899 Nasal 2.0L Cannula 12/05 0643 98.8 99 20 136/64 94 Nasal 2.0L Cannula 12/05 0000 Nasal 2.0L Cannula 12/04 2217 98.9 97 20 120/72 94 12/04 2009 93 Nasal 2.0L Cannula 12/04 1600 Nasal 2.0L Cannula 12/04 1534 98.5 101 18 122/56 95 Nasal 2.0L Cannula 12/04 1130 Nasal 2.0L Cannula Intake & Output 12/05 0800 12/05 0000 12/04 1600 12/04 0800 12/04 0000 Intake Total 550 0 Output Total 700 100 350 Balance -700 450 -350 0 Intake, IV 300 Intake, Oral 250 0 Number 1 Bowel Movements Output, Urine 700 100 350 Patient 135 lb 140 lb Weight Weight Bed scale Measurement Method Physical Exam: General Appearance: Alert, Oriented X3, Cooperative, No Acute Distress Cardiovascular: Regular Rate, No Murmurs, no rub. No JVD Lungs: Clear to Auscultation, Normal Air Movement Abdomen: Normal Bowel Sounds, Soft, No Tenderness, No Hepatospenomegaly Neurological: Normal Speech, Strength at 5/5 X4 Ext, Normal Tone, Sensation Intact Extremities: good capillary refill. Left upper extremity edema remains. Labs/Cj Results: Laboratory Tests 12/05 12/04 0410 1610 Chemistry Sodium (137 - 145 mmol/L) 131 L 129 L Potassium (3.5 - 5.1 mmol/L) 4.3 4.6 Chloride (98 - 107 mmol/L) 94 L 92 L Carbon Dioxide (22 - 30 mmol/L) 33 H 31 H Anion Gap (5 - 16) 4 L 6 BUN (9 - 20 mg/dL) 21 H 23 H Creatinine (0.7 - 1.2 mg/dL) 0.5 L 0.5 L Estimated GFR (>60 ml/min) > 60 > 60 BUN/Creatinine Ratio (7 - 25 %) 42.0 H 46.0 H Hematology CBC w Diff NO MAN DIFF REQ WBC (4.8 - 10.8 /CUMM) 14.1 H RBC (4.70 - 6.10 /CUMM) 3.25 L Hgb (14.0 - 18.0 G/DL) 10.1 L Hct (42 - 52 %) 30.5 L MCV (80.0 - 94.0 FL) 93.9 MCH (27.0 - 31.0 PG) 31.0 MCHC (33.0 - 37.0 G/DL) 33.0 RDW (11.5 - 14.5 %) 19.3 H Plt Count (130 - 400 /CUMM) 182 MPV (7.4 - 10.4 FL) 6.7 L Gran % (42.2 - 75.2 %) 88.5 H Lymphocytes % (20.5 - 51.1 %) 2.8 L Monocytes % (1.7 - 9.3 %) 8.7 Eosinophils % (0 - 5 %) 0 Basophils % (0.0 - 2.0 %) 0 Absolute Granulocytes (1.4 - 6.5 /CUMM) 12.5 H Absolute Lymphocytes (1.2 - 3.4 /CUMM) 0.4 L Absolute Monocytes (0.10 - 0.60 /CUMM) 1.2 H Absolute Eosinophils (0.0 - 0.7 /CUMM) 0 Absolute Basophils (0.0 - 0.2 /CUMM) 0 12/0408 12/03 051999 Chemistry Sodium (137 - 145 mmol/L) 129 L 126 L Cancelled Potassium (3.5 - 5.1 mmol/L) 4.2 Chloride (98 - 107 mmol/L) 92 L Carbon Dioxide (22 - 30 mmol/L) 30 Anion Gap (5 - 16) 7 BUN (9 - 20 mg/dL) 20 Creatinine (0.7 - 1.2 mg/dL) 0.5 L Estimated GFR (>60 ml/min) > 60 BUN/Creatinine Ratio (7 - 25 %) 40.0 H Troponin I (<0.11 ng/ml) < 0.01 Hematology CBC w Diff NO MAN DIFF REQ WBC (4.8 - 10.8 /CUMM) 17.5 H RBC (4.70 - 6.10 /CUMM) 3.34 L Hgb (14.0 - 18.0 G/DL) 10.5 L Hct (42 - 52 %) 31.5 L MCV (80.0 - 94.0 FL) 94.3 H MCH (27.0 - 31.0 PG) 31.3 H MCHC (33.0 - 37.0 G/DL) 33.2 RDW (11.5 - 14.5 %) 19.1 H Plt Count (130 - 400 /CUMM) 181 MPV (7.4 - 10.4 FL) 7.3 L Gran % (42.2 - 75.2 %) 92.6 H Lymphocytes % (20.5 - 51.1 %) 0.9 L Monocytes % (1.7 - 9.3 %) 6.5 Eosinophils % (0 - 5 %) 0 Basophils % (0.0 - 2.0 %) 0 Absolute Granulocytes (1.4 - 6.5 /CUMM) 16.2 H Absolute Lymphocytes (1.2 - 3.4 /CUMM) 0.2 L Absolute Monocytes (0.10 - 0.60 /CUMM) 1.1 H Absolute Eosinophils (0.0 - 0.7 /CUMM) 0 Absolute Basophils (0.0 - 0.2 /CUMM) 0 12/03 12/03 12/03 1658 1658 1435 Chemistry Lactic Acid Cancelled Urines Urine Color Cancelled Urine Clarity Cancelled Urine pH Cancelled Ur Specific Tatamy Cancelled Urine Protein Cancelled Urine Ketones Cancelled Urine Nitrite Cancelled Urine Bilirubin Cancelled Urine Urobilinogen Cancelled Ur Leukocyte Esterase Cancelled Ur Microscopic Cancelled Urine Hemoglobin Cancelled Urine Osmolality Cancelled Ur Random Creatinine Cancelled Ur Random Sodium Cancelled Ur Random Potassium Cancelled Fraction Sodium Excret Cancelled Urine Glucose Cancelled 12/03 1339 Chemistry Sodium (137 - 145 mmol/L) 128 L Potassium (3.5 - 5.1 mmol/L) 4.6 Chloride (98 - 107 mmol/L) 91 L Carbon Dioxide (22 - 30 mmol/L) 31 H Anion Gap (5 - 16) 6 BUN (9 - 20 mg/dL) 23 H Creatinine (0.7 - 1.2 mg/dL) 0.5 L Estimated GFR (>60 ml/min) > 60 BUN/Creatinine Ratio (7 - 25 %) 46.0 H Glucose (65 - 99 mg/dL) 103 H Serum Osmolality (285 - 295 MOSM/KG) 272 L Lactic Acid (0.7 - 2.1 mmol/L) 0.9 Calcium (8.4 - 10.2 mg/dL) 8.9 Total Bilirubin (0.2 - 1.3 mg/dL) 0.5 AST (17 - 59 U/L) 63 H ALT (21 - 72 U/L) 42 Alkaline Phosphatase (< 127 U/L) 89 Troponin I (<0.11 ng/ml) < 0.01 [id number] Pept (<125 pg/mL) 423 H Total Protein (6.3 - 8.2 g/dL) 5.5 L Albumin (3.5 - 5.0 g/dL) 3.1 L Globulin (1.9 - 4.2 gm/dL) 2.4 Albumin/Globulin Ratio (1.1 - 2.2 %) 1.3 Hematology CBC w Diff MAN DIFF ORDERED WBC (4.8 - 10.8 /CUMM) 21.2 H RBC (4.70 - 6.10 /CUMM) 3.53 L Hgb (14.0 - 18.0 G/DL) 11.1 L Hct (42 - 52 %) 32.5 L MCV (80.0 - 94.0 FL) 92.2 MCH (27.0 - 31.0 PG) 31.3 H MCHC (33.0 - 37.0 G/DL) 34.0 RDW (11.5 - 14.5 %) 19.0 H Plt Count (130 - 400 /CUMM) 198 MPV (7.4 - 10.4 FL) 6.8 L Gran % (42.2 - 75.2 %) 95.7 H Lymphocytes % (20.5 - 51.1 %) 0.8 L Monocytes % (1.7 - 9.3 %) 3.5 Eosinophils % (0 - 5 %) 0 Basophils % (0.0 - 2.0 %) 0 Absolute Granulocytes (1.4 - 6.5 /CUMM) 20.3 H Absolute Lymphocytes (1.2 - 3.4 /CUMM) 0.2 L Absolute Monocytes (0.10 - 0.60 /CUMM) 0.7 H Absolute Eosinophils (0.0 - 0.7 /CUMM) 0 Absolute Basophils (0.0 - 0.2 /CUMM) 0 Platelet Estimate (ADEQUATE) VERIFIED BY SMEAR Anisocytosis 1+ Assessment/Plan Assessment/Plan Anasarca in the context of advanced stage lung cancer receiving chemotherapy. Mild pericardial effusion without evidence of tamponnade, although there is some mild paradoxical movement of the right atrium , without collapse however. Patient wishes to go home at all costs today. He should have a follow-up echocardiogram within the next 4 weeks or if symptoms change. Depending on his prognosis, if effusion progresses, a tap could be performed. Consult Acknowledgment - Thank you for your consult request.
[2017-12-05] MEDS ORDERED: AMOX-CLAV 875-1 EACH PO ×3 (11:50→15:53)
[2017-12-05] MEDS ORDERED: AZITHROMYCIN250 M1 PO ×3 (11:50→15:53)
[2017-12-05] MEDS ORDERED: VENTOLIN HFA18 GM INH (13:25)
--- NOTE | 2017-12-05 13:35 | Patient Discharge Instructions ---
Discharge Instructions General Discharge Information You were seen/treated for: Post obstructive Pneumonia, spesis Watch for these problems: SOB, cough, Fever Special Instructions: Please Follow up with Oncologist Dr. Fields, within 1 week of discharge Please Follow up with PCP within 1 week within 1 week of discharge Please Follow up with a insurance risk manager for a possible echocardiogram within 1 month of discharge for suspected Pericardial efffusion Please come back to ER/ hospital in case of worsening of cough/ Fever/ SOB Diet Continue normal diet: Yes Recommended Diet: Heart Healthy Activity Full Activity/No Limits: Yes Acute Coronary Syndrome Inclusion Criteria At DC or during hospital stay patient has or had the following: ACS DIAGNOSIS No Discharge Core Measures Meds if any: Prescribed or Continued at Discharge Meds if any: NOT Prescribed or Continued at Discharge Congestive Heart Failure Inclusion Criteria At DC or during hospital stay patient has or had the following: CHF DIAGNOSIS No Discharge Core Measures Meds if any: Prescribed or Continued at Discharge Meds if any: NOT Prescribed or Continued at Discharge Cerebrovascular accident Inclusion Criteria At DC or during hospital stay patient has or had the following: CVA/TIA Diagnosis No Discharge Core Measures Meds if any: Prescribed or Continued at Discharge Meds if any: NOT Prescribed or Continued at Discharge Venous thromboembolism Inclusion Criteria VTE Diagnosis No VTE Type NONE VTE Confirmed by (Test) NONE Discharge Core Measures - Per Current guidelines, there needs to be overlap - treatment for the first 5 days of Warfarin therapy. - If discharged on Warfarin prior to 5 days of - overlap therapy, the patient will need to be - assessed for post discharge needs including - *Post discharge parental anticoagulation - *Warfarin and/or parental anticoagulation education - *Follow up date to check INR post discharge At least 5 days overlap therapy as Inpatient Yes Meds if any: Prescribed or Continued at Discharge Note: Overlap Therapy is Warfarin and Anticoagulant Meds if any: NOT Prescribed or Continued at Discharge
[2017-12-05 14:00] VITALS: BP 120/58
--- NOTE | 2017-12-05 14:11 | ECHOCARDIOGRAM REPORT ---
CURT SHARPE Age: 82 : 1935 Gender: M Exam Date: 12/05/2017 11:08 Exam Location: [address] [facility] Ht (in): 66 Wt (lb): 135 BSA: 1.69 BP: 136 / 64 Ordering Physician: Jer Gupta MD Referring Physician: Jer Gupta MD Technologist: Gordo Garcia [facility] Room Number: 189-1 Indications: Heart failure, unspecified Rhythm: Sinus Technical Quality: fair FINDINGS Left Ventricle Normal left ventricular size, wall thickness and systolic function with no obvious regional wall motion abnormalities. Normal left ventricular diastolic filling pattern for age. The ejection fraction is visually estimated at 60 %. Right Ventricle The right ventricle is normal in size and function. Right Atrium The right atrium inverses at the end of diastole without completely collapsing. Left Atrium The left atrium is normal in size. The interatrial septum is not well visualized. Mitral Valve The mitral valve is normal in structure and function. There is trace mitral regurgitation. Aortic Valve Structurally normal aortic valve with mild scleroris but no stenosis. There is trace aortic regurgitation. Tricuspid Valve The tricuspid valve is normal in structure and function. There is mild tricuspid regurgitation. Pulmonary artery systolic pressure is normal. Respiratory variations of tricuspid inflow is less than 50%. Pulmonic Valve Structurally normal pulmonic valve. There is no pulmonic regurgitation. Pericardium Circumferencial pericardial effusion, mostly located behind right atrium, <10mm in diastole. No tamponnade. No pleural effusion. Great Vessels Normal aortic root dimension. The aortic arch and great vessels are well seen and are normal. CONCLUSIONS Circumferencial pericardial effusion, mostly located behind right atrium, <10mm in diastole. No tamponnade. Respiratory variations of tricuspid inflow is less than 50%. Normal left ventricular size, wall thickness and systolic function with no obvious regional wall motion abnormalities. Normal left ventricular diastolic filling pattern for age. The ejection fraction is visually estimated at 60 %. The right ventricle is normal in size and function. The right atrium inverses at the end of diastole without completely collapsing. The left atrium is normal in size. The mitral valve is normal in structure and function. There is trace mitral regurgitation. Structurally normal aortic valve with mild scleroris but no stenosis. There is trace aortic regurgitation. Results discussed with patient's treating resident (Dr Zaragoza), suggest to repeat echo within 4 weeks, or sooner if symptoms change. Jer Gupta M.D. (Electronically Signed) Final Date: 05 December 2017 14:05 MEASUREMENTS (Male / Female) Normal Values 2D ECHO LV Diastolic Diameter PLAX 4.3 cm 4.2 - 5.9 / 3.9 - 5.3 cm LV Systolic Diameter PLAX 3.0 cm 2.1 - 4.0 cm LV Fractional Shortening PLAX 30.2 % 25 - 46 % LV Ejection Fraction 2D Teich 57.9 % IVS Diastolic Thickness 0.8 cm LVPW Diastolic Thickness 0.9 cm LV Relative Wall Thickness 0.4 RV Internal Dim ED PLAX 1.8 cm 1.9 - 3.8 cm LVOT Diameter 2.2 cm Aortic Root Diameter 3.3 cm LA Systolic Diameter LX 2.4 cm 3.0 - 4.0 / 2.7 - 3.8 cm Ascending Aorta Diameter 3.1 cm DOPPLER AV Peak Velocity 113.0 cm/s AV Peak Gradient 5.1 mmHg AV Mean Velocity 78.2 cm/s AV Mean Gradient 3.0 mmHg AV Velocity Time Integral 23.5 cm LVOT Peak Velocity 77.5 cm/s LVOT Peak Gradient 2.4 mmHg LVOT Mean Velocity 53.1 cm/s LVOT Mean Gradient 1.0 mmHg LVOT Velocity Time Integral 21.2 cm LVOT Stroke Volume 80.6 cm AV Area Cont Eq vti 3.4 cm AV Area Cont Eq pk 2.6 cm MV Peak Velocity 92.4 cm/s MV Peak Gradient 3.4 mmHg MV Mean Velocity 55.7 cm/s MV Mean Gradient 1.0 mmHg Mitral E Point Velocity 62.2 cm/s Mitral A Point Velocity 91.8 cm/s Mitral E to A Ratio 0.7 MV PHT Velocity 78.7 cm/s MV Deceleration Coosa 268.0 cm/s MV Pressure Half Time 88.1 ms MV Area PHT 2.5 cm MV Deceleration Time 345.0 ms TR Peak Velocity 259.0 cm/s TR Peak Gradient 26.8 mmHg Right Atrial Pressure 10.0 mmHg Pulmonary Artery Systolic Pressure 36.8 mmHg Right Ventricular Systolic Pressure 36.8 mmHg PV Peak Velocity 78.6 cm/s PV Peak Gradient 2.5 mmHg PV Mean Velocity 50.3 cm/s PV Mean Gradient 1.0 mmHg PV Velocity Time Integral 16.8 cm LV E' Lateral Velocity 8.3 cm/s Mitral E to LV E' Lateral Ratio 7.5 LV E' Septal Velocity 5.8 cm/s Mitral E to LV E' Septal Ratio 10.8
--- NOTE | 2017-12-05 19:02 | CT SCAN REPORT ---
EXAMINATION: CT HEAD WITHOUT AND WITH CONTRAST CLINICAL INFORMATION: History of lung cancer. Altered mental status. COMPARISON: Head CT from 08/13/2017. TECHNIQUE: Contiguous axial imaging was performed from the skull base to vertex before and after the administration of 100 mL of Optiray 320 intravenous contrast. DLP: 1310.86. mGy-cm FINDINGS: There is no evidence of acute intracranial hemorrhage or territorial infarction. No abnormal mass effect or midline shift is seen. Nuñez to white matter differentiation is well preserved. No extra-axial fluid collections are identified. There is no abnormal enhancement. The ventricles are normal in size. There is no abnormal attenuation within the brain parenchyma. Generalized parenchymal volume loss noted. The osseous structures and soft tissues are normal. The mastoid air cells and visualized portions of the paranasal sinuses are well aerated. IMPRESSION: No acute intracranial pathology.
--- NOTE | 2017-12-05 23:07 | Discharge Summary ---
Visit Information Visit Dates Admission Date: 12/03/17 Discharge Date: 12/05/17 Hospital Course Course Attending Physician: Sonya Naranjo MD Primary Care Physician: Nasim Cuellar MD Hospital Course: Chad Martin is a 82 YO male with a PMHx. of SCLC diagnosed by Dr. Kearney in June 2017 s/p 5 chemotherapy treatments who presents to the ED with a chief complaint of "shortness of breath and peripheral edema." Patient states that for the past 2-3 weeks he has been experiencing progressive dyspnea and coughing spells.. Findings on CTA show a likely postobstructive pneumonia and progressive metastatic disease and possible lymphangitic spread of disease . Venous doppler- No signs of DVT #Sepsis, likely 2/2 post-obstructive pneumonia - Admit to Telemetry floor for monitoring and assessment of vitals - Antibiotic changed from azithro and ceftrixone IV to PO Azithro 5 days and AUgmentin 7 days on discharge - Leukocytosis with WBC 14 follow up CBC from 17 on admission - Oxygen therapy to maintain saturation > 92% via 2L NC or face mask; if needed CPAP or BiPAP - Blood cultures pending, consider sputum cx. - DIscharge on request on O2 with instruction to return to hospital if return of sx. 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 SUSPected PEricardial effusion Additional Diagnosis: Twave inversion Discharge Disposition: home health services Discharge Instructions General Discharge Information Code Status: Full Code Patient's Diet: regular Patient's Activity: as tolerated Follow-Up Instructions/Appts: Follow up with DR kearney, oncologist within 1 week, ' follow up with cardiology for pericardial effusion follow up with PCP within 1 week of discharge return to ER in case of cough , fever , SOB worsening Medications at Discharge Discharge Medications: Continue taking these medications: Albuterol Sulfate (Ventolin Hfa) 90 MCG HFA.AER.AD 2 Puff Inhale through mouth EVERY 4-6 HOURS NEEDED as needed for SOB Comments: NOT GIVEN IN THE HOSPITAL Magnesium Oxide (Magnesium) 400 MG CAPSULE 1 Tablet ORAL DAILY Comments: NOT GIVEN IN THE HOSPITAL Polyethylene Glycol 3350 (Miralax) 17 GRAM/DOSE POWDER 17 Gram ORAL DAILY Qty = 255 Instructions: mix with water, juice, soda, coffee or tea Comments: NOT GIVEN IN THE HOSPITAL Sennosides (Senna) 8.6 MG TABLET 2 Tablet ORAL TWICE DAILY Qty = 100 Comments: NOT GIVEN IN THE HOSPITAL Start taking the following new medications: Azithromycin (Azithromycin) 250 MG TABLET 250 Milligram ORAL GIVE ONCE Qty = 3 No Refills Instructions: . Comments: PT ONLY GIVEN IV ZITHROMAX IN HOSPITAL. LAST DOSE 12/05/17 @10:45AM Amoxicillin/Clavulanate Potass (Amox-Clav 875-125 MG Tablet) 875 MG-125 MG TABLET 875 Milligram ORAL EVERY 12 HOURS Qty = 10 No Refills Instructions: . Comments: NOT GIVEN IN THE HOSPITAL. ONLY IV ANTIBIOTIC GIVEN. 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 Much more awake and alert today. Conversant and cooperative. No complaints. Per daughter he looks much better and is near baseline. He still becomes short of breath with exertion and desaturates to 83% with movement on room air. At rest on 2L he is 93%. 1. RLL pneumonia secondary to obstruction without sepsis 2. Right sided lung cancer 3. SIADH 4. LUE edema 5. Acute EKG changes 6. Acute hypoxemic respiratory failure Plan - Discussed with patient and family staying one more day for continued treatment. Patient wants to go home. He understands that he may worsen at home , but wishes to be there. Understands the risks of discharge. - Oxygen on discharge - Augmentin for 7 additional days. Complete 5 day course of Azithromycin - Outpatient pulmonary and oncology follow up - Continue home medications
== END 2017-12-05 18:55 | disposition home health service (06) | DRG 193 ==
LOC: ERH 10:34 → ERHI 16:43 → 1NO 16:43 → CANBEDREQ 18:01 → ENRESERV 18:32 → ENTRNSPT 20:01 → EDTRNSPTSTS 20:24 → 1NO 20:36 → CMPTRNSPT 20:45 → 1NO 12-04 06:17 → ENPENDDIS 12-05 16:00 → ENTRNSPT 12-05 18:43 → EDTRNSPTSTS 12-05 18:50 → 1NO 12-05 18:55 → CMPTRNSPT 12-05 19:07
PROVIDERS: Internal Medicine Endocrinology, Diabetes & Metabolism; Physician Assistant; Student in an Organized Health Care Education/Training Program
DX: J18.9 Pneumonia, unspecified organism (principal); J96.00 Acute respiratory failure, unspecified whether with hypoxia or hypercapnia; C34.91 Malignant neoplasm of unspecified part of right bronchus or lung; E22.2 Syndrome of inappropriate secretion of antidiuretic hormone; R60.9 Edema, unspecified; R59.0 Localized enlarged lymph nodes; Z92.21 Personal history of antineoplastic chemotherapy; Z87.891 Personal history of nicotine dependence; Z79.51 Long term (current) use of inhaled steroids; R94.31 Abnormal electrocardiogram [ECG] [EKG]
CPT/HCPCS: 1NSP; 84133; 84300; 36592; 82436; 82570; 87040; 87070; 93005; 93010; 93306; 96374; 97116-GO; 97161-GP; 97530-GO; 99291; J0456; J0696; J1642; J1644; J3490; J7040